=== PATIENT | male | born 1940 | race Two or more races ===

== ENCOUNTER 2018-12-12 16:15 | Inpatient (IN) | payer MEDICARE, MEDICAID ==
[~2018-12-12] VITALS: Ht 170.2 cm; Wt 72.6 kg
[2018-12-12 16:15] VITALS: BP 120/63
--- NOTE | 2018-12-12 16:15 | NUR ---
ED Nurse Note: PT BROUGHT IN TO ER TODAY BY AMBULANCE FROM [facility]. PER EMS, PT SENT DUE TO WORSENING VERBAL OUTBURSTS AND AGITATION X 2 DAYS. ON ASSESSMENT, PT IS EXTREMELY PLEASANT, CALM AND COOPERATIVE TO CARE. PER EMS, PT IS AOX1 WHICH IS BASELINE. PT IS AOX1 - ORIENTED TO SELF BUT NOT TO TIME, PLACE, OR SITUATION. HOWEVER, PT DOES ANSWER QUESTIONS APPROPRIATELY. PT PRESENTS WITH RIGHT ARM CONTRACTURES AND MILD CONTRACTURES TO BILATERAL LOWER EXTREMITIES. SKIN INTACT.
--- NOTE | 2018-12-12 16:35 | NUR ---
ED Nurse Note: XRAY AT BEDSIDE
--- NOTE | 2018-12-12 16:55 | Diagnostic Imaging Report ---
Indication: Chest pain Technique: One view of the chest Comparison: none Findings: The heart is enlarged. Patient's chin obscures the upper mediastinum. Scarring or atelectasis is seen in the left midlung. Impression: Cardiomegaly Left midlung scarring or atelectasis
--- NOTE | 2018-12-12 16:58 | Emergency Room Report ---
History of Present Illness General Chief Complaint: Behavioral Complaint Source: Patient, Medical Record Present Illness HPI Patient presents from nursing facility There was reports of the patient was acting more confused than usual Also acting more aggressively Here the patient denies any headache denies any chest pain denies any abdominal pain Upon arrival to the room he asked me where it was from Denies any other back pain Allergies: Coded Allergies: No Known Allergies (Unverified , 12/12/18) Patient History Past Medical History: see triage record Pertinent Family History: none Reviewed Nursing Documentation: PMH: Agreed; PSxH: Agreed Nursing Documentation-PMH Past Medical History: No History, Except For Hx Cardiac Problems: No - hemiparesis, hemiplegia Hx Hypertension: Yes Hx Diabetes: Yes Review of Systems All Other Systems: negative except mentioned in HPI Physical Exam Vital Signs Date Time Temp Pulse Resp B/P (MAP) Pulse Ox O2 Delivery O2 Flow Rate FiO2 12/12/18 16:10 98.4 63 16 126/69 95 Room Air Sp02 EP Interpretation: reviewed, normal General Appearance: no apparent distress Head: normocephalic, atraumatic Eyes: bilateral eye PERRL ENT: other - Poor dentition, dry mucosa Neck: supple Respiratory: lungs clear, no retraction, no accessory muscle use Cardiovascular #1: regular rate, rhythm, no edema Gastrointestinal: non tender, soft Musculoskeletal: other - Patient is chronically debilitated right foot is bent inward left hip is flexed at the knee Neurologic: alert, responsive - Just mild confusion not Psychiatric: mood/affect normal Skin: no rash Lymphatic: no adenopathy Medical Decision Making Diagnostic Impression: Primary Impression: Encephalopathy Additional Impression: Dehydration ER Course Patient is a fairly complex patient with multiple differential to consideration including but not limited to cardiac cardiopulmonary and vascular emergencies Neurological pathology including neurosurgical, infectious pathology also entertained Patient provided with further IV hydration USP reports that the patient is confused and it is difficult for them to care for the patient I spoke to the patient's primary physician who will admit for further inpatient care Labs Test 12/12/18 17:00 12/12/18 18:23 White Blood Count 6.6 K/UL (4.8-10.8) Red Blood Count 4.93 M/UL (4.70-6.10) Hemoglobin 13.7 G/DL (14.2-18.0) Hematocrit 42.1 % (42.0-52.0) Mean Corpuscular Volume 85 FL (80-99) Mean Corpuscular Hemoglobin 27.8 PG (27.0-31.0) Mean Corpuscular Hemoglobin Concent 32.6 G/DL (32.0-36.0) Red Cell Distribution Width 14.3 % (11.6-14.8) Platelet Count 241 K/UL (150-450) Mean Platelet Volume 5.8 FL (6.5-10.1) Neutrophils (%) (Auto) 55.2 % (45.0-75.0) Lymphocytes (%) (Auto) 31.2 % (20.0-45.0) Monocytes (%) (Auto) 9.4 % (1.0-10.0) Eosinophils (%) (Auto) 2.8 % (0.0-3.0) Basophils (%) (Auto) 1.3 % (0.0-2.0) Sodium Level 138 MMOL/L (136-145) Potassium Level 4.3 MMOL/L (3.5-5.1) Chloride Level 104 MMOL/L (98-107) Carbon Dioxide Level 27 MMOL/L (21-32) Anion Gap 7 mmol/L (5-15) Blood Urea Nitrogen 14 mg/dL (7-18) Creatinine 1.0 MG/DL (0.55-1.30) Estimat Glomerular Filtration Rate mL/min (>60) Glucose Level 86 MG/DL (74-106) Lactic Acid Level 1.30 mmol/L (0.4-2.0) Calcium Level 9.0 MG/DL (8.5-10.1) Total Bilirubin 0.3 MG/DL (0.2-1.0) Aspartate Amino Transf (AST/SGOT) 17 U/L (15-37) Alanine Aminotransferase (ALT/SGPT) 12 U/L (12-78) Alkaline Phosphatase 65 U/L (46-116) Total Creatine Kinase 85 U/L (26-308) Creatine Kinase MB 1.1 NG/ML (0.0-3.6) Creatine Kinase MB Relative Index 1.2 Troponin I 0.014 ng/mL (0.000-0.056) Total Protein 7.3 G/DL (6.4-8.2) Albumin 3.1 G/DL (3.4-5.0) Globulin 4.2 g/dL Albumin/Globulin Ratio 0.7 (1.0-2.7) Urine Color Pale yellow Urine Appearance Clear Urine pH 7 (4.5-8.0) Urine Specific [place] 1.005 (1.005-1.035) Urine Protein Negative (NEGATIVE) Urine Glucose (UA) Negative (NEGATIVE) Urine Ketones Negative (NEGATIVE) Urine Blood 1+ (NEGATIVE) Urine Nitrite Negative (NEGATIVE) Urine Bilirubin Negative (NEGATIVE) Urine Urobilinogen Normal MG/DL (0.0-1.0) Urine Leukocyte Esterase Negative (NEGATIVE) Urine RBC 2-4 /HPF (0 - 0) Urine WBC 0-2 /HPF (0 - 0) Urine Squamous Epithelial Cells None /LPF (NONE/OCC) Urine Amorphous Sediment Few /LPF (NONE) Urine Bacteria Few /HPF (NONE) Rhythm Strip Diag. Results EP Interpretation: yes Rate: 80 Rhythm: NSR, no PVC's, no ectopy Chest X-Ray Diagnostic Results Chest X-Ray Diagnostic Results : Chest X-Ray Ordered: Yes # of Views/Limited/Complete: 1 View Indication: Chest Pain EP Interpretation: Yes Interpretation: no consolidation, no effusion, no pneumothorax Impression: No acute disease - Cardiomegaly Electronically Signed by: Katie Barone DO Last Vital Signs Date Time Temp Pulse Resp B/P (MAP) Pulse Ox O2 Delivery O2 Flow Rate FiO2 12/12/18 16:10 98.4 63 16 126/69 95 Room Air Status: improved Disposition: ADMITTED INPATIENT Condition: Serious Katie Barone DO Dec 12, 2018 16:58
[2018-12-12 17:33] LABS: BASOPHILS % (AUTO) 1.3 % (0.0-2.0); EOSINOPHILS % (AUTO) 2.8 % (0.0-3.0); HEMATOCRIT 42.1 % (42.0-52.0); HEMOGLOBIN 13.7 G/DL (14.2-18.0); LYMPHOCYTES % (AUTO) 31.2 % (20.0-45.0); MEAN CORPUSCULAR VOLUME 85 FL (80-99); MONOCYTES % (AUTO) 9.4 % (1.0-10.0); NEUTROPHILS % (AUTO) 55.2 % (45.0-75.0); PLATELET COUNT 241 K/UL (150-450); RED BLOOD COUNT 4.93 M/UL (4.70-6.10); RED CELL DISTRIBUTION WIDTH 14.3 % (11.6-14.8); WHITE BLOOD COUNT 6.6 K/UL (4.8-10.8)
[2018-12-12 17:42] LABS: ANION GAP 7 mmol/L (5-15); BLOOD UREA NITROGEN 14 mg/dL (7-18); CARBON DIOXIDE 27 MMOL/L (21-32); CHLORIDE 104 MMOL/L (98-107); POTASSIUM 4.3 MMOL/L (3.5-5.1); SODIUM 138 MMOL/L (136-145)
[2018-12-12 18:04] LABS: ALANINE AMINOTRANSFERASE 12 U/L (12-78); ALBUMIN 3.1 G/DL (3.4-5.0); ALBUMIN/GLOBULIN RATIO 0.7 (1.0-2.7); ALKALINE PHOSPHATASE 65 U/L (46-116); ASPARTATE AMINO TRANSFERASE 17 U/L (15-37); BILIRUBIN,TOTAL 0.3 MG/DL (0.2-1.0); CKMB 1.1 NG/ML (0.0-3.6); CREATINE KINASE 85 U/L (26-308)
[2018-12-12 18:15] VITALS: BP 125/60
[2018-12-12 18:40] LABS: APPEARANCE,URINE CLEAR; BILIRUBIN, URINE NEGATIVE (NEGATIVE); COLOR,URINE PALE YELLOW; GLUCOSE, URINE (UA) NEGATIVE (NEGATIVE); KETONES,URINE NEGATIVE (NEGATIVE); LEUKOCYTE ESTERASE ,URINE NEGATIVE (NEGATIVE); NITRITE,URINE NEGATIVE (NEGATIVE); PH,URINE 7 (4.5-8.0); PROTEIN,URINE NEGATIVE (NEGATIVE); UROBILINOGEN,URINE NORMAL MG/DL (0.0-1.0)
--- NOTE | 2018-12-12 19:10 | NUR ---
ED Nurse Note: Recieved pt on santos, no complaint at the moment. pt is not aggresive. pt is hooked on monitor with vs. will continue to monitor.
--- NOTE | 2018-12-12 19:13 | NUR ---
ED Nurse Note: REPORT GIVEN TO ESTUARDO PAUL.
[2018-12-12 20:33] VITALS: BP 99/75
[2018-12-12 21:48] VITALS: BP 126/79
--- NOTE | 2018-12-12 22:15 | NUR ---
NURSE NOTES: Received report from ER nurse Diamond, reported pt is nonverbal and oriented to his name only, contracted Left arm and bilateral lower extremities, from [facility], Diamond did part of Med Recon
[2018-12-12] MEDS ORDERED: LISINOPRIL5 MG ORAL (22:24)
[2018-12-12] MEDS ORDERED: DOCUSATE SODIU100 MG ORAL (22:24)
[2018-12-12] MEDS ORDERED: ZOCOR10 MG ORAL (22:24)
[2018-12-12] MEDS ORDERED: DEPAKOTE250 MG PO (22:24)
[2018-12-12] MEDS ORDERED: ELIQUIS2.5 MG PO (22:24)
[2018-12-12] MEDS ORDERED: ACETAMINOPHEN325 M1 ORAL (22:24)
[2018-12-12] MEDS ORDERED: CARDURA1 MG ORAL (22:24)
--- NOTE | 2018-12-12 22:25 | NUR ---
ED Nurse Note: pt is admitted to the hospital. report given to gm sutton. pt tranfered to 421-2 with all belongings and on a stable vs.
--- NOTE | 2018-12-12 22:45 | NUR ---
NURSE NOTES: Pt arrived, greeted pt, he was very talkative, able to tell me his name, his birthdate and that he was in [place]. Left upper extremity is contracted and he says he doesn't want to move it, he was able to move both lower extremities. Called Dr. Ward and received orders and put them in the system. Bed in lowest position, call light within reach. Will continue to monitor pt. Addendum: 12/12/18 at 2348 by JESSI HUFFMAN RN NURSE NOTES: Vital signs 135/74, 58HR, 96%RA, 97.8T
[2018-12-12] MEDS ORDERED: ARTIFICIAL TEAR15 ML BOTH EYES (23:14)
[2018-12-12] MEDS ORDERED: VITAMIN B-12500 MCG ORAL (23:14)
[2018-12-12] MEDS ORDERED: VITAMIN D400 INTLU ORAL (23:14)
[2018-12-12] MEDS ORDERED: MULTIVITAMINS1 EAC2 ORAL (23:14)
[2018-12-13] VITALS: BP 118/72
--- NOTE | 2018-12-13 03:17 | NUR ---
NURSE NOTES: Per [facility] paperwork, pt received Flu shot 07/21/2018
[2018-12-13 04:00] VITALS: BP 141/75
--- NOTE | 2018-12-13 07:18 | NUR ---
HAND-OFF: Report given to TRAI Tierney.
[2018-12-13 08:00] VITALS: BP 128/73
--- NOTE | 2018-12-13 08:30 | NUR ---
NURSE NOTES: received patient A/A/Ox1, respond to tactile stimuli, nonverbal. 1:1 feeder. No acute resp distress noted. No c/o pain/discomfort. keep bed in lowest position. siderails are up x3. call light is within reach. IV access patent and intact. will cont to monitor.
[2018-12-13 08:34] LABS: BASOPHILS % (AUTO) 1.1 % (0.0-2.0); EOSINOPHILS % (AUTO) 2.4 % (0.0-3.0); HEMOGLOBIN 14.3 G/DL (14.2-18.0); LYMPHOCYTES % (AUTO) 32.4 % (20.0-45.0); MEAN CORPUSCULAR VOLUME 84 FL (80-99); MONOCYTES % (AUTO) 8.3 % (1.0-10.0); NEUTROPHILS % (AUTO) 55.8 % (45.0-75.0); PLATELET COUNT 241 K/UL (150-450); RED BLOOD COUNT 5.13 M/UL (4.70-6.10); RED CELL DISTRIBUTION WIDTH 13.9 % (11.6-14.8); WHITE BLOOD COUNT 5.6 K/UL (4.8-10.8)
--- NOTE | 2018-12-13 08:43 | Consultation ---
History of Present Illness General Chief Complaint: Behavioral Complaint Present Illness HPI 78-year-old male with history of psychosis and CVA with hemiplegia, who was brought in from assisted for complaint of aggressive behavior and confusion. the pt has memory impairment and is not able to follow the command. the pt is agitated the pt unable to follow command. the pt is disoriented. Allergies: Coded Allergies: No Known Allergies (Unverified , 12/12/18) Medication History Scheduled Apixaban (Eliquis), 2.5 MG PO TWICE A DAY, (Reported) Cyanocobalamin (Vitamin B-12)* (Vitamin B-12*), 500 MCG ORAL DAILY, (Reported) Dextran 70/Hypromellose (Artificial Tears Eye Drops*), 1 DROP BOTH EYES TWICE A DAY, (Reported) Divalproex Sodium* (Depakote*), 125 MG PO BEDTIME, (Reported) Docusate Sodium* (Docusate Sodium*), 100 MG ORAL DAILY, (Reported) Doxazosin Mesylate* (Cardura*), 2 MG ORAL BEDTIME, (Reported) Lisinopril (Lisinopril*), 5 MG ORAL DAILY, (Reported) Multivitamins* (Multivitamins*), 1 TAB ORAL DAILY, (Reported) Simvastatin (Zocor), 10 MG ORAL BEDTIME, (Reported) Vitamin D (Vitamin D3), 1,000 UNITS ORAL THREE TIMES A DAY, (Reported) Scheduled PRN Acetaminophen* (Acetaminophen 325MG Tablet*), 325 MG ORAL Q4H PRN for Mild Pain/ Temp > 100.5, (Reported) Lorazepam* (Ativan*), 2 MG ORAL Q6H PRN Patient History Limited by: medical condition History Provided By: Medical Record, PMD Healthcare decision maker Resuscitation status Full Code Advanced Directive on File Past Medical/Surgical History Past Medical/Surgical History: (1) Behavioral change (2) Dehydration (3) Encephalopathy Review of Systems Psychiatric: Reports: prior hx, anxiety, emotional problems, hallucinations Physical Exam General Appearance: WD/WN, alert, confused, severe distress, agitated Neurologic: depressed affect Last 24 Hour Vital Signs Date Time Temp Pulse Resp B/P (MAP) Pulse Ox O2 Delivery O2 Flow Rate FiO2 12/13/18 04:00 98.3 69 17 141/75 (97) 95 69 12/13/18 00:00 98.9 58 17 118/72 (87) 93 58 12/12/18 23:51 Room Air 12/12/18 22:25 97.8 72 17 114/65 93 Room Air 72 12/12/18 21:48 61 20 126/79 97 Room Air 61 12/12/18 20:33 63 20 99/75 95 Room Air 12/12/18 18:15 98.6 68 18 125/60 100 Room Air 12/12/18 16:15 98.6 60 20 120/63 100 Room Air 12/12/18 16:15 60 20 Room Air 12/12/18 16:10 98.4 63 16 126/69 95 Room Air Intake and Output 12/12/18 12/13/18 18:59 06:59 Intake Total 1000 ml 120 ml Balance 1000 ml 120 ml Intake Oral 120 ml IV Total 1000 ml # Voids 1 2 # Bowel Movements 2 Laboratory Tests Test 12/12/18 17:00 12/12/18 18:23 12/13/18 07:55 White Blood Count 6.6 K/UL (4.8-10.8) 5.6 K/UL (4.8-10.8) Red Blood Count 4.93 M/UL (4.70-6.10) 5.13 M/UL (4.70-6.10) Hemoglobin 13.7 G/DL (14.2-18.0) L 14.3 G/DL (14.2-18.0) Hematocrit 42.1 % (42.0-52.0) 43.0 % (42.0-52.0) Mean Corpuscular Volume 85 FL (80-99) 84 FL (80-99) Mean Corpuscular Hemoglobin 27.8 PG (27.0-31.0) 27.9 PG (27.0-31.0) Mean Corpuscular Hemoglobin Concent 32.6 G/DL (32.0-36.0) 33.2 G/DL (32.0-36.0) Red Cell Distribution Width 14.3 % (11.6-14.8) 13.9 % (11.6-14.8) Platelet Count 241 K/UL (150-450) 241 K/UL (150-450) Mean Platelet Volume 5.8 FL (6.5-10.1) L 6.4 FL (6.5-10.1) L Neutrophils (%) (Auto) 55.2 % (45.0-75.0) 55.8 % (45.0-75.0) Lymphocytes (%) (Auto) 31.2 % (20.0-45.0) 32.4 % (20.0-45.0) Monocytes (%) (Auto) 9.4 % (1.0-10.0) 8.3 % (1.0-10.0) Eosinophils (%) (Auto) 2.8 % (0.0-3.0) 2.4 % (0.0-3.0) Basophils (%) (Auto) 1.3 % (0.0-2.0) 1.1 % (0.0-2.0) Sodium Level 138 MMOL/L (136-145) Pending Potassium Level 4.3 MMOL/L (3.5-5.1) Pending Chloride Level 104 MMOL/L (98-107) Pending Carbon Dioxide Level 27 MMOL/L (21-32) Pending Anion Gap 7 mmol/L (5-15) Blood Urea Nitrogen 14 mg/dL (7-18) Pending Creatinine 1.0 MG/DL (0.55-1.30) Pending Estimat Glomerular Filtration Rate mL/min (>60) Pending Glucose Level 86 MG/DL (74-106) Pending Lactic Acid Level 1.30 mmol/L (0.4-2.0) Calcium Level 9.0 MG/DL (8.5-10.1) Pending Total Bilirubin 0.3 MG/DL (0.2-1.0) Aspartate Amino Transf (AST/SGOT) 17 U/L (15-37) Alanine Aminotransferase (ALT/SGPT) 12 U/L (12-78) Alkaline Phosphatase 65 U/L (46-116) Total Creatine Kinase 85 U/L (26-308) Creatine Kinase MB 1.1 NG/ML (0.0-3.6) Creatine Kinase MB Relative Index 1.2 Troponin I 0.014 ng/mL (0.000-0.056) Total Protein 7.3 G/DL (6.4-8.2) Albumin 3.1 G/DL (3.4-5.0) L Globulin 4.2 g/dL Albumin/Globulin Ratio 0.7 (1.0-2.7) L Urine Color Pale yellow Urine Appearance Clear Urine pH 7 (4.5-8.0) Urine Specific [place] 1.005 (1.005-1.035) Urine Protein Negative (NEGATIVE) Urine Glucose (UA) Negative (NEGATIVE) Urine Ketones Negative (NEGATIVE) Urine Blood 1+ (NEGATIVE) H Urine Nitrite Negative (NEGATIVE) Urine Bilirubin Negative (NEGATIVE) Urine Urobilinogen Normal MG/DL (0.0-1.0) Urine Leukocyte Esterase Negative (NEGATIVE) Urine RBC 2-4 /HPF (0 - 0) H Urine WBC 0-2 /HPF (0 - 0) Urine Squamous Epithelial Cells None /LPF (NONE/OCC) Urine Amorphous Sediment Few /LPF (NONE) H Urine Bacteria Few /HPF (NONE) Height (Feet): 5 Height (Inches): 7.00 Weight (Pounds): 160 Medications Current Medications Medications (Trade) Dose Ordered Sig/Heber Route PRN Reason Start Time Stop Time Status Last Admin Dose Admin Acetaminophen (Tylenol) 325 mg Q4H PRN ORAL Mild Pain/Temp > 100.5 12/12/18 23:30 01/11/19 23:29 Apixaban (Eliquis) 2.5 mg TWICE A DAY ORAL 12/13/18 09:00 01/12/19 08:59 Artificial Tears (Akwa-Tears) 1 drop TWICE A DAY BOTH EYES 12/13/18 09:00 01/12/19 08:59 Cyanocobalamin (Vitamin B-12) 500 mcg DAILY ORAL 12/13/18 09:00 01/12/19 08:59 Divalproex Sodium (Depakote Sprinkles) 125 mg BEDTIME ORAL 12/13/18 21:00 01/12/19 20:59 Docusate Sodium (Colace) 100 mg DAILY ORAL 12/13/18 09:00 01/12/19 08:59 Doxazosin Mesylate (Cardura) 2 mg BEDTIME ORAL 12/13/18 21:00 01/12/19 20:59 Lisinopril (Zestril) 5 mg DAILY ORAL 12/13/18 09:00 01/12/19 08:59 Multivitamins (Multivitamins) 1 tab DAILY ORAL 12/13/18 09:00 01/12/19 08:59 Vitamin D (Vitamin D) 1,000 intlu THREE TIMES A DAY ORAL 12/13/18 09:00 01/12/19 08:59 Assessment/Plan Problem List: (1) Acute metabolic encephalopathy ICD Codes: G93.41 - Metabolic encephalopathy SNOMED: [id number], [id number] Assessment/Plan lexapro 10mg po qam depakote ativan the pt lacks capacity to make decisions. Pavel Elder MD Dec 13, 2018 08:43
[2018-12-13] MEDS: Eliquis 2.5mg tablet ORAL SCH ×2 (08:50→17:18)
[2018-12-13] MEDS: Artificial Tears 1.4% Op Soln BOTH EYES SCH ×2 (08:50→17:19)
[2018-12-13] MEDS: Docusate 100mg cap ORAL SCH (08:50)
[2018-12-13] MEDS: Vitamin B-12 500mcg tab ORAL SCH (08:51)
[2018-12-13] MEDS: Vitamin D 1000 IU Tab ORAL SCH ×3 (08:51→17:19)
[2018-12-13] MEDS: Lisinopril 2.5mg tab ORAL SCH (08:51)
[2018-12-13 09:19] LABS: ANION GAP 7 mmol/L (5-15); BLOOD UREA NITROGEN 10 mg/dL (7-18); CALCIUM 8.9 MG/DL (8.5-10.1); CARBON DIOXIDE 25 MMOL/L (21-32); CHLORIDE 107 MMOL/L (98-107); CREATININE 0.7 MG/DL (0.55-1.30); POTASSIUM 4.1 MMOL/L (3.5-5.1); SODIUM 139 MMOL/L (136-145)
[2018-12-13 12:00] VITALS: BP 105/80
[2018-12-13 16:19] VITALS: BP 120/55
--- NOTE | 2018-12-13 16:57 | General Progress Note ---
Assessment/Plan Status: stable Assessment/Plan 1. bipolar disorder - will have Psych see the patient. 2. HTN - cont home meds and monitor BP and adjust meds as needed. 3. 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 4. constipation - cont colace 100 mg one po daily. Subjective Date patient seen: Dec 13, 2018 Time patient seen: 08:00 Constitutional: Reports: weakness HEENT: Reports: no symptoms Cardiovascular: Reports: no symptoms Respiratory: Reports: no symptoms Gastrointestinal/Abdominal: Reports: no symptoms Genitourinary: Reports: no symptoms Neurologic/Psychiatric: Reports: no symptoms Endocrine: Reports: no symptoms Hematologic/Lymphatic: Reports: no symptoms Allergies: Coded Allergies: No Known Allergies (Unverified , 12/12/18) Subjective This morning patient was seen by Psych. No sob or chest pain. no fever or chills. No Nausea or Vomiting. Objective Last 24 Hour Vital Signs Date Time Temp Pulse Resp B/P (MAP) Pulse Ox O2 Delivery O2 Flow Rate FiO2 12/13/18 16:19 98.5 64 18 120/55 (76) 94 64 12/13/18 12:00 98.6 61 15 105/80 (88) 95 61 12/13/18 09:00 Room Air 12/13/18 08:51 112/64 12/13/18 08:00 97.0 59 18 128/73 (91) 97 59 12/13/18 04:00 98.3 69 17 141/75 (97) 95 69 12/13/18 00:00 98.9 58 17 118/72 (87) 93 58 12/12/18 23:51 Room Air 12/12/18 22:25 97.8 72 17 114/65 93 Room Air 72 12/12/18 21:48 61 20 126/79 97 Room Air 61 12/12/18 20:33 63 20 99/75 95 Room Air 12/12/18 18:15 98.6 68 18 125/60 100 Room Air Intake and Output 12/12/18 12/13/18 19:00 07:00 Intake Total 1000 ml 120 ml Balance 1000 ml 120 ml Intake Oral 120 ml IV Total 1000 ml # Voids 1 2 # Bowel Movements 2 Laboratory Tests 12/12/18 17:00: White Blood Count 6.6, Red Blood Count 4.93, Hemoglobin 13.7L, Hematocrit 42.1, Mean Corpuscular Volume 85, Mean Corpuscular Hemoglobin 27.8, Mean Corpuscular Hemoglobin Concent 32.6, Red Cell Distribution Width 14.3, Platelet Count 241, Mean Platelet Volume 5.8L, Neutrophils (%) (Auto) 55.2, Lymphocytes (%) (Auto) 31.2, Monocytes (%) (Auto) 9.4, Eosinophils (%) (Auto) 2.8, Basophils (%) (Auto ) 1.3, Sodium Level 138, Potassium Level 4.3, Chloride Level 104, Carbon Dioxide Level 27, Anion Gap 7, Blood Urea Nitrogen 14, Creatinine 1.0, Estimat Glomerular Filtration Rate , Glucose Level 86, Lactic Acid Level 1.30, Calcium Level 9.0, Total Bilirubin 0.3, Aspartate Amino Transf (AST/SGOT) 17, Alanine Aminotransferase (ALT/SGPT) 12, Alkaline Phosphatase 65, Total Creatine Kinase 85, Creatine Kinase MB 1.1, Creatine Kinase MB Relative Index 1.2, Troponin I 0.014, Total Protein 7.3, Albumin 3.1L, Globulin 4.2, Albumin/Globulin Ratio 0.7L 12/12/18 18:23: Urine Color Pale yellow, Urine Appearance Clear, Urine pH 7, Urine Specific [place] 1.005, Urine Protein Negative, Urine Glucose (UA) Negative, Urine Ketones Negative, Urine Blood 1+H, Urine Nitrite Negative, Urine Bilirubin Negative, Urine Urobilinogen Normal, Urine Leukocyte Esterase Negative, Urine RBC 2-4H, Urine WBC 0-2, Urine Squamous Epithelial Cells None, Urine Amorphous Sediment FewH, Urine Bacteria Few 12/13/18 07:55: White Blood Count 5.6, Red Blood Count 5.13, Hemoglobin 14.3, Hematocrit 43.0, Mean Corpuscular Volume 84, Mean Corpuscular Hemoglobin 27.9, Mean Corpuscular Hemoglobin Concent 33.2, Red Cell Distribution Width 13.9, Platelet Count 241, Mean Platelet Volume 6.4L, Neutrophils (%) (Auto) 55.8, Lymphocytes (%) (Auto) 32.4, Monocytes (%) (Auto) 8.3, Eosinophils (%) (Auto) 2.4, Basophils (%) (Auto ) 1.1, Sodium Level 139, Potassium Level 4.1, Chloride Level 107, Carbon Dioxide Level 25, Anion Gap 7, Blood Urea Nitrogen 10, Creatinine 0.7, Estimat Glomerular Filtration Rate , Glucose Level 76, Calcium Level 8.9 Height (Feet): 5 Height (Inches): 7.00 Weight (Pounds): 160 General Appearance: alert EENT: normal ENT inspection Neck: non-tender, normal alignment, supple Cardiovascular: normal rate, regular rhythm, no gallop/murmur Respiratory/Chest: lungs clear, normal breath sounds, no respiratory distress Abdomen: normal bowel sounds, non tender, soft Extremities: normal range of motion, non-tender Edema: no edema noted Arm (L), no edema noted Arm (R), no edema noted Leg (L), no edema noted Leg (R), no edema noted Pedal (L), no edema noted Pedal (R), no edema noted Generalized Neurologic: no motor/sensory deficits, alert, responsive Skin: warm/dry Lymphatic: normal anterior cervical (L), normal anterior cervical (R), normal posterior cervical (L), normal posterior cervical (R), normal submandibular (L) , normal submandibular (R), normal supraclavicular (L), normal supraclavicular ( R), normal axillary (L), normal axillary (R), normal inguinal (L), normal inguinal (R), normal other Mitesh Ward MD Dec 13, 2018 16:57
--- NOTE | 2018-12-13 19:15 | NUR ---
HAND-OFF: Report given to Romy.
--- NOTE | 2018-12-13 19:39 | NUR ---
NURSE NOTES: Pt received awake, alert but not speaking because he was holding fluid in his mouth. Informed both charge nurses. I asked him to spit it out and he did. Bed in lowest position, call light within reach, condom catheter in place. will continue to monitor
[2018-12-13 20:00] VITALS: BP 121/69
[2018-12-13] MEDS ORDERED: LORazepam 1mg tab ORAL PRN (20:15)
[2018-12-13] MEDS ORDERED: Depakote 125mg Sprinkles ORAL SCH (21:00)
[2018-12-13] MEDS: Doxazosin 1mg Tab ORAL SCH (21:09)
[2018-12-13] MEDS: Depakote 125mg Sprinkles ORAL SCH (21:10)
[2018-12-14] VITALS: BP 129/66
--- NOTE | 2018-12-14 01:00 | History and Physical Report ---
DATE OF ADMISSION: 12/12/2018 CHIEF COMPLAINT: Aggressive behavior and slight confusion at senior living. HISTORY OF PRESENT ILLNESS: This is an 78-year-old male with history of CVA with hemiplegia, who was brought in from senior living for complaint of aggressive behavior and confusion according to the nursing staff at the senior living. The patient also has a history of hypertension and constipation. The patient denies any shortness of breath or chest pain. No abdominal pain, nausea, or vomiting. PAST MEDICAL HISTORY: Include history of hypertension, constipation, and CVA with hemiplegia. ALLERGIES: No known drug allergy. SOCIAL HISTORY: The patient lives in a long-term senior living. No history of smoking or alcohol abuse. REVIEW OF SYSTEMS: Negative except for history of present illness. PHYSICAL EXAMINATION: VITAL SIGNS: Temperature 98.4, pulse 63, respirations 16, blood pressure 162/69, and pulse oximetry 95% on room air. GENERAL: Alert, in no apparent distress, responds to commands. HEENT: Normocephalic, normochromic. Extraocular muscles intact. Throat is clear. NECK: Supple. No lymphadenopathy. LUNGS: Clear to auscultation bilaterally. No retraction and no accessory muscle use. CARDIOVASCULAR: Regular rate and rhythm. No murmur. No gallop. Normal S1, S2. GASTROINTESTINAL: Soft, nontender, and nondistended. Positive bowel sounds. EXTREMITIES: No edema, cyanosis, or clubbing. BACK: No CVA tenderness. SKIN: No rash. LABORATORY AND DIAGNOSTIC DATA: Include WBC 6.6, hemoglobin 13.7, hematocrit 42.1, platelet count 241, neutrophils 55, lymphocytes 31, monos 9, eosinophils 2.8, and basophils 1.3. Sodium 138, potassium 4.3, chloride 104, carbon dioxide 27, BUN 14, creatinine 1, glucose 86, calcium 9. AST 17, ALT 12, alkaline phosphatase 65. Albumin 3.1. Troponin is 0.014. Lactic acid is 1.3. UA showed +1 blood, 2 to 4 rbcs, and few amorphous sediment and few bacteria, and wbc 0 to 2. Chest x-ray showed cardiomegaly and left midlung scarring versus atelectasis. IMPRESSION: 1. Bipolar disorder and we will have Psychiatry to see the patient as inpatient. 2. Hypertension. We will continue home medication and adjust blood pressure medication accordingly. 3. CVA with hemiplegia. The patient is currently on anticoagulation with Eliquis 2.5 twice a day and will be continued. 4. Constipation. We will have the patient on Colace 100 daily. The patient will be admitted for a minimum of two-night stay for adjustment of medication for bipolar disorder and aggression. Late entry, time of dictation does not correspond to the time patient was seen. Mitesh Ward M.D. DR: ORN JOB#: [id number] CC: ROSY
[2018-12-14 04:00] VITALS: BP 129/77
--- NOTE | 2018-12-14 06:47 | NUR ---
NURSE NOTES: Micro (Roger) called stating blood culture came back gram positive cocci in clusters.
--- NOTE | 2018-12-14 07:24 | NUR ---
HAND-OFF: Report given to ESTUARDO Gunn. Endorsed about pt blood culture gram positive cocci in clusters, patient not swallowing thickened water at times.
--- NOTE | 2018-12-14 07:36 | NUR ---
NURSE NOTES: pt in bed with no sob nor in any form of distress noted. IV intact and patent. no behavior issue noted. bed in lowest position. call light within reach at all time. will continue to monitor
[2018-12-14 08:00] VITALS: BP 95/60
[2018-12-14] MEDS: Vitamin B-12 500mcg tab ORAL SCH (08:30)
[2018-12-14] MEDS: Eliquis 2.5mg tablet ORAL SCH ×2 (08:30→17:41)
[2018-12-14] MEDS: Vitamin D 1000 IU Tab ORAL SCH ×3 (08:30→17:41)
[2018-12-14] MEDS: Artificial Tears 1.4% Op Soln BOTH EYES SCH ×2 (08:31→17:41)
[2018-12-14] MEDS: Lisinopril 2.5mg tab ORAL SCH (08:31)
[2018-12-14] MEDS: Docusate 100mg cap ORAL SCH (08:31)
[2018-12-14 12:00] VITALS: BP 124/65
[2018-12-14 16:00] VITALS: BP 120/68
--- NOTE | 2018-12-14 19:10 | NUR ---
HAND-OFF: Report given to ESTUARDO Stanton.
[2018-12-14 20:00] VITALS: BP 135/79
--- NOTE | 2018-12-14 20:45 | NUR ---
NURSE NOTES: Pt received awake lying in bed, at lowest position, no signs of pain or distress at the moment, will continue to monitor.
[2018-12-14] MEDS: Depakote 125mg Sprinkles ORAL SCH (21:44)
[2018-12-14] MEDS: Doxazosin 1mg Tab ORAL SCH (21:44)
--- NOTE | 2018-12-14 23:30 | General Progress Note ---
Assessment/Plan Status: stable Assessment/Plan 1. bipolar disorder - cont depakote. D/c planning tomorrow back to [facility]. 2. questionable sepsis - blood culture positive x one set with Gram Positive cocci in cluster most likely contamination. 3. HTN - controlled. cont same meds. 4. 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 5. constipation - cont colace 100 mg one po daily. Subjective Date patient seen: Dec 14, 2018 Time patient seen: 10:00 Constitutional: Reports: weakness HEENT: Reports: no symptoms Cardiovascular: Reports: no symptoms Respiratory: Reports: no symptoms Gastrointestinal/Abdominal: Reports: no symptoms Genitourinary: Reports: no symptoms Neurologic/Psychiatric: Reports: no symptoms Endocrine: Reports: no symptoms Hematologic/Lymphatic: Reports: no symptoms Allergies: Coded Allergies: No Known Allergies (Unverified , 12/12/18) Subjective Patient awake and afebrile. No sob or chest pain. no fever or chills. No Nausea or Vomiting. one set of blood culture showed gram Positive cocci in cluster. Objective Last 24 Hour Vital Signs Date Time Temp Pulse Resp B/P (MAP) Pulse Ox O2 Delivery O2 Flow Rate FiO2 12/14/18 16:00 97.1 68 18 120/68 (85) 96 67 12/14/18 12:00 97.5 67 18 124/65 (84) 95 67 12/14/18 09:00 Room Air 12/14/18 08:31 95/60 12/14/18 08:00 97.0 71 18 95/60 (72) 94 71 12/14/18 04:00 98.0 79 18 129/77 (94) 94 79 12/14/18 00:00 98.1 71 17 129/66 (87) 94 71 Intake and Output 12/13/18 12/14/18 19:00 07:00 Intake Total 660 ml 120 ml Balance 660 ml 120 ml Intake Oral 660 ml 120 ml # Voids 7 2 # Bowel Movements 2 Height (Feet): 5 Height (Inches): 7.00 Weight (Pounds): 160 General Appearance: no apparent distress, alert Neck: non-tender, normal alignment, supple Cardiovascular: normal peripheral pulses, normal rate, regular rhythm Respiratory/Chest: chest wall non-tender, lungs clear, normal breath sounds Abdomen: normal bowel sounds, non tender, soft Extremities: normal range of motion, non-tender Edema: no edema noted Arm (L), no edema noted Arm (R), no edema noted Leg (L), no edema noted Leg (R), no edema noted Pedal (L), no edema noted Pedal (R), no edema noted Generalized Neurologic: alert, responsive Skin: warm/dry Lymphatic: normal anterior cervical (L), normal anterior cervical (R), normal posterior cervical (L), normal posterior cervical (R), normal submandibular (L) , normal submandibular (R), normal supraclavicular (L), normal supraclavicular ( R), normal axillary (L), normal axillary (R), normal inguinal (L), normal inguinal (R), normal other Mitesh Ward MD Dec 14, 2018 23:30
[2018-12-15] VITALS: BP 127/75
[2018-12-15 04:00] VITALS: BP 138/71
--- NOTE | 2018-12-15 07:08 | NUR ---
HAND-OFF: Report given to ESTUARDO Roman.
[2018-12-15 07:14] LABS: BASOPHILS % (AUTO) 0.9 % (0.0-2.0); EOSINOPHILS % (AUTO) 1.8 % (0.0-3.0); HEMOGLOBIN 13.4 G/DL (14.2-18.0); LYMPHOCYTES % (AUTO) 24.4 % (20.0-45.0); MEAN CORPUSCULAR VOLUME 84 FL (80-99); PLATELET COUNT 222 K/UL (150-450); RED BLOOD COUNT 4.76 M/UL (4.70-6.10); WHITE BLOOD COUNT 7.2 K/UL (4.8-10.8)
[2018-12-15 07:21] LABS: ANION GAP 10 mmol/L (5-15); BLOOD UREA NITROGEN 11 mg/dL (7-18); CALCIUM 8.7 MG/DL (8.5-10.1); CARBON DIOXIDE 25 MMOL/L (21-32); CHLORIDE 104 MMOL/L (98-107); CREATININE 0.9 MG/DL (0.55-1.30); POTASSIUM 3.9 MMOL/L (3.5-5.1); SODIUM 139 MMOL/L (136-145)
--- NOTE | 2018-12-15 07:30 | NUR ---
NURSE NOTES: pt in bed with no sob nor in any form of distress noted. Breathing regular and unlabored. denies any pain at this time. call light within reach at all time. will continue to monitor
[2018-12-15 08:00] VITALS: BP 115/66
[2018-12-15] MEDS: Vitamin D 1000 IU Tab ORAL SCH ×2 (08:32→12:27)
[2018-12-15] MEDS: Lisinopril 2.5mg tab ORAL SCH (08:32)
[2018-12-15] MEDS: Docusate 100mg cap ORAL SCH (08:33)
[2018-12-15] MEDS: Vitamin B-12 500mcg tab ORAL SCH (08:33)
[2018-12-15] MEDS: Artificial Tears 1.4% Op Soln BOTH EYES SCH (08:33)
[2018-12-15] MEDS: Eliquis 2.5mg tablet ORAL SCH (08:33)
[2018-12-15] MEDS ORDERED: ATIVAN1 MG ORAL (09:09)
--- NOTE | 2018-12-15 09:13 | General Progress Note ---
Assessment/Plan Status: stable Assessment/Plan 1. bipolar disorder - cont depakote. [facility]. 2. questionable sepsis - Pt is stable and no sign of sepsis. blood culture positive x one set with Gram Positive cocci in cluster most likely contamination. 3. HTN - controlled. cont same meds. 4. 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 5. constipation - cont colace 100 mg one po daily. Subjective Date patient seen: Dec 15, 2018 Time patient seen: 09:00 Constitutional: Reports: weakness HEENT: Reports: no symptoms Cardiovascular: Reports: no symptoms Respiratory: Reports: no symptoms Gastrointestinal/Abdominal: Reports: no symptoms Genitourinary: Reports: no symptoms Neurologic/Psychiatric: Reports: no symptoms Endocrine: Reports: no symptoms Hematologic/Lymphatic: Reports: no symptoms Allergies: Coded Allergies: No Known Allergies (Unverified , 12/12/18) Subjective Patient awake and afebrile. No sob or chest pain. no fever or chills. No Nausea or Vomiting. Objective Last 24 Hour Vital Signs Date Time Temp Pulse Resp B/P (MAP) Pulse Ox O2 Delivery O2 Flow Rate FiO2 12/15/18 08:32 115/65 12/15/18 08:00 98.1 65 17 115/66 (82) 97 65 12/15/18 04:00 97.9 79 18 138/71 (93) 99 79 12/15/18 00:00 98.0 81 18 127/75 (92) 92 81 12/14/18 21:00 Room Air 12/14/18 20:00 97.9 85 18 135/79 (97) 93 85 12/14/18 16:00 97.1 68 18 120/68 (85) 96 67 12/14/18 12:00 97.5 67 18 124/65 (84) 95 67 Intake and Output 12/14/18 12/15/18 18:59 06:59 Intake Total 860 ml 120 ml Balance 860 ml 120 ml Intake Oral 860 ml 120 ml # Voids 8 2 # Bowel Movements 1 Laboratory Tests 12/15/18 05:45: White Blood Count 7.2, Red Blood Count 4.76, Hemoglobin 13.4L, Hematocrit 40.0L , Mean Corpuscular Volume 84, Mean Corpuscular Hemoglobin 28.2, Mean Corpuscular Hemoglobin Concent 33.7, Red Cell Distribution Width 14.0, Platelet Count 222, Mean Platelet Volume 6.3L, Neutrophils (%) (Auto) 65.0, Lymphocytes ( %) (Auto) 24.4, Monocytes (%) (Auto) 8.0, Eosinophils (%) (Auto) 1.8, Basophils (%) (Auto) 0.9, Sodium Level 139, Potassium Level 3.9, Chloride Level 104, Carbon Dioxide Level 25, Anion Gap 10, Blood Urea Nitrogen 11, Creatinine 0.9, Estimat Glomerular Filtration Rate , Glucose Level 78, Calcium Level 8.7 Height (Feet): 5 Height (Inches): 7.00 Weight (Pounds): 160 General Appearance: no apparent distress, alert EENT: normal ENT inspection, TMs normal Neck: non-tender, normal alignment, supple Cardiovascular: normal peripheral pulses, normal rate, regular rhythm Respiratory/Chest: chest wall non-tender, lungs clear, normal breath sounds Abdomen: normal bowel sounds, non tender, soft Extremities: normal range of motion, non-tender Edema: no edema noted Arm (L), no edema noted Arm (R), no edema noted Leg (L), no edema noted Leg (R), no edema noted Pedal (L), no edema noted Pedal (R), no edema noted Generalized Neurologic: alert, oriented x 3, responsive Skin: warm/dry Lymphatic: normal anterior cervical (L), normal anterior cervical (R), normal posterior cervical (L), normal posterior cervical (R), normal submandibular (L) , normal submandibular (R), normal supraclavicular (L), normal supraclavicular ( R), normal axillary (L), normal axillary (R), normal inguinal (L), normal inguinal (R), normal other Mitesh Ward MD Dec 15, 2018 09:13
[2018-12-15 12:00] VITALS: BP 124/71
[2018-12-15] MEDS ORDERED: LEXAPRO10 MG ORAL (12:08)
--- NOTE | 2018-12-15 12:08 | General Progress Note ---
Assessment/Plan Problem List: (1) Acute metabolic encephalopathy ICD Codes: G93.41 - Metabolic encephalopathy SNOMED: [id number], [id number] Status: not improved, unchanged Assessment/Plan lexapro 10mg po qam depakote ativan the pt lacks capacity to make decisions. Subjective Neurologic/Psychiatric: Reports: anxiety, depressed, emotional problems Allergies: Coded Allergies: No Known Allergies (Unverified , 12/12/18) Objective Last 24 Hour Vital Signs Date Time Temp Pulse Resp B/P (MAP) Pulse Ox O2 Delivery O2 Flow Rate FiO2 12/15/18 09:00 Room Air 12/15/18 08:32 115/65 12/15/18 08:00 98.1 65 17 115/66 (82) 97 65 12/15/18 04:00 97.9 79 18 138/71 (93) 99 79 12/15/18 00:00 98.0 81 18 127/75 (92) 92 81 12/14/18 21:00 Room Air 12/14/18 20:00 97.9 85 18 135/79 (97) 93 85 12/14/18 16:00 97.1 68 18 120/68 (85) 96 67 Intake and Output 12/14/18 12/15/18 18:59 06:59 Intake Total 860 ml 120 ml Balance 860 ml 120 ml Intake Oral 860 ml 120 ml # Voids 8 2 # Bowel Movements 1 Laboratory Tests 12/15/18 05:45: White Blood Count 7.2, Red Blood Count 4.76, Hemoglobin 13.4L, Hematocrit 40.0L , Mean Corpuscular Volume 84, Mean Corpuscular Hemoglobin 28.2, Mean Corpuscular Hemoglobin Concent 33.7, Red Cell Distribution Width 14.0, Platelet Count 222, Mean Platelet Volume 6.3L, Neutrophils (%) (Auto) 65.0, Lymphocytes ( %) (Auto) 24.4, Monocytes (%) (Auto) 8.0, Eosinophils (%) (Auto) 1.8, Basophils (%) (Auto) 0.9, Sodium Level 139, Potassium Level 3.9, Chloride Level 104, Carbon Dioxide Level 25, Anion Gap 10, Blood Urea Nitrogen 11, Creatinine 0.9, Estimat Glomerular Filtration Rate , Glucose Level 78, Calcium Level 8.7 Height (Feet): 5 Height (Inches): 7.00 Weight (Pounds): 160 General Appearance: WD/WN, alert, confused, agitated Pavel Elder MD Dec 15, 2018 12:08
--- NOTE | 2018-12-15 14:16 | NUR ---
*-* DISCHARGE PLANNING *-* PATIENT HAS BEEN REFERRED BACK TO: [facility] P:[phone] F:[phone]
--- NOTE | 2018-12-15 14:36 | NUR ---
*-* DISCHARGE PLANNED *-* PATIENT IS DISCHARGED TO: [facility]. ROOM# 121-C SKILLED T:[phone] FOR NURSE TO NURSE REPORT [facility] HAS BEEN ARRANGED FOR FINISH SAW OPERATOR AT [address] [id number]
[2018-12-15 16:00] VITALS: BP 130/76
--- NOTE | 2018-12-15 18:23 | NUR ---
NURSE NOTES: pt was removed from the system previously by accident. pt was discharged to [facility] snf picked up by ambulance @1836 with stable condition. Iv heplock removed and covered with gauze and taped. no bleeding noted. VSS. denies any pain. all discharge report given to the nurse Gricelda and verbalized understanding.
--- NOTE | 2018-12-15 23:45 | Discharge Summary ---
DATE OF ADMISSION: 12/12/2018 DATE OF DISCHARGE: 12/15/2018 HOSPITAL COURSE: This is an 78-year-old male with history of CVA with hemiplegia, who was brought in for complaint of aggressive behavior and confusion prior to admission. The patient was brought in for psych evaluation as well. He also has history of hypertension and constipation. He denied any shortness of breath or chest pain. While in the hospital, the patient was seen by psych and started on Lexapro along with Depakote 125 mg daily. He also had blood cultures showed one negative for 48 hours, but one of the cultures showed, it was positive for gram-positive cocci in cluster and staphylococcus coag-negative, but most likely was contamination because the patient did not have any signs or symptoms of sepsis. He also had a chest x-ray done while in the hospital that was negative for any acute changes. DISCHARGE DIAGNOSES: 1. Bipolar disorder. 2. Hypertension. 3. CVA with hemiplegia. 4. Constipation. DISCHARGE MEDICATIONS: Include: 1. Ativan 2 mg q.6 h. p.r.n. 2. Acetaminophen 325 mg q.4 h. p.r.n. 3. Eliquis 2.5 mg twice a day. 4. Vitamin B12 500 mcg p.o. daily. 5. Artificial Tears one drop b.i.d. 6. Depakote 125 mg p.o. nightly. 7. Colace 100 mg daily. 8. Cardura 2 mg p.o. nightly. 9. Lexapro 10 mg daily. 10. Lisinopril 5 mg p.o. daily. 11. Multivitamin one p.o. daily. 12. Zocor 10 mg p.o. nightly. 13. Vitamin D 1000 units p.o. daily. DISPOSITION: The patient will be discharged back to the [facility] and we will follow up the patient in a few days. Mitesh Ward M.D. DR: SEN JOB#: [id number] CC:
== END 2018-12-15 17:37 | DRG 885 ==
LOC: EDBD 16:15 → EMR 16:36 → EDBEDREQ 16:36 → 4E 20:16 → EDBEDREQ 20:25 → 4E 22:35
DX: F31.9 Bipolar disorder, unspecified (principal); G93.41 Metabolic encephalopathy; I69.359 Hemiplegia and hemiparesis following cerebral infarction affecting unspecified side; E86.0 Dehydration; I10 Essential (primary) hypertension; K59.00 Constipation, unspecified
CPT/HCPCS: 36415; 71045; 80048; 80053; 81003; 82550; 82553; 83605; 84484; 85025; 87040; 87081; 87181; 93005; 96360; 99285

== ENCOUNTER 2019-02-16 15:31 | Inpatient (IN) | payer MEDICARE, MEDICAID ==
[~2019-02-16] VITALS: Ht 175.3 cm; Wt 74.5 kg
[~2019-02-16 15:31] MED LIST: ACETAMINOPHEN325 M1 ORAL; ARTIFICIAL TEAR15 ML BOTH EYES; ATIVAN1 MG ORAL; CARDURA1 MG ORAL; DEPAKOTE250 MG PO; DOCUSATE SODIU100 MG ORAL; ELIQUIS2.5 MG PO; LEXAPRO10 MG ORAL; LISINOPRIL5 MG ORAL; MULTIVITAMINS1 EAC2 ORAL; VITAMIN B-12500 MCG ORAL; VITAMIN D400 INTLU ORAL; ZOCOR10 MG ORAL
[2019-02-16 15:41] VITALS: BP 113/75
--- NOTE | 2019-02-16 15:41 | NUR ---
ED Nurse Note: Pt brought in by ambulance [facility] from [facility] due to left ear discharge since this morning. Per EMS, the SNF staff denies any recent trauma or head injury. Pt is awake but unable to follow commands. Noted liquid drainage with bright red blood in left ear.
[2019-02-16] MEDS ORDERED: Albuterol ud Inhalation HHN ONE (16:15)
[2019-02-16] MEDS ORDERED: Isovue-300 100ml vial INJ PRN (16:30)
--- NOTE | 2019-02-16 16:30 | NUR ---
ED Nurse Note: Pt taken to CT via [facility]. Blood specimen and ear culture sent.
--- NOTE | 2019-02-16 16:59 | NUR ---
ED Nurse Note: RT at the bed side for breathing treatment.
--- NOTE | 2019-02-16 17:07 | Diagnostic Imaging Report ---
Indication: Left ear pain Technique: Continuous helical transaxial imaging of the maxillofacial structures obtained after intravenous contrast administration. Coronal 2-D reformats were also obtained. Study obtained in a Siemens sensation [address] Total Dose length Product (DLP): 735.[address] Dose Index Volume (CTDIvol): 28.19 mGy Comparison: None Findings: There is sclerosis and under pneumatization of the mastoid portions of both temporal bones indicative of chronic mastoiditis. In addition on the left side there is opacification of several of the mastoid air cells some of which appear to have coalesced. This is a sign of acute mastoiditis. There is soft tissue opacification of the external auditory canal extending into the middle ear canal with soft tissue thickening. This may be due to cellulitis. Correlate clinically. There is no abscess or fluid collection identified. The paranasal sinuses appear clear as visualized. TMJs are unremarkable. Orbits as visualized are unremarkable. There is generalized atrophy of the brain. IMPRESSION: Acute on chronic left mastoiditis, otitis media and suggestion of left external otitis. No abscess identified.
[2019-02-16 17:10] LABS: ANION GAP 9 mmol/L (5-15); BASOPHILS % (AUTO) 0.9 % (0.0-2.0); BLOOD UREA NITROGEN 11 mg/dL (7-18); CALCIUM 8.8 MG/DL (8.5-10.1); CARBON DIOXIDE 22 MMOL/L (21-32); CHLORIDE 104 MMOL/L (98-107); CREATININE 0.8 MG/DL (0.55-1.30); EOSINOPHILS % (AUTO) 1.1 % (0.0-3.0); HEMATOCRIT 40.3 % (42.0-52.0); HEMOGLOBIN 13.6 G/DL (14.2-18.0); LYMPHOCYTES % (AUTO) 12.8 % (20.0-45.0); MEAN CORPUSCULAR VOLUME 82 FL (80-99); MONOCYTES % (AUTO) 10.1 % (1.0-10.0); NEUTROPHILS % (AUTO) 75.1 % (45.0-75.0); PLATELET COUNT 221 K/UL (150-450); POTASSIUM 4.4 MMOL/L (3.5-5.1); RED BLOOD COUNT 4.93 M/UL (4.70-6.10); SODIUM 135 MMOL/L (136-145); WHITE BLOOD COUNT 10.6 K/UL (4.8-10.8)
[2019-02-16 17:14] LABS: ALANINE AMINOTRANSFERASE 17 U/L (12-78); ALBUMIN 2.8 G/DL (3.4-5.0); ALBUMIN/GLOBULIN RATIO 0.6 (1.0-2.7); ALKALINE PHOSPHATASE 66 U/L (46-116); ASPARTATE AMINO TRANSFERASE 21 U/L (15-37); BILIRUBIN,TOTAL 0.6 MG/DL (0.2-1.0)
[2019-02-16 17:15] LABS: INR 1.1 (0.9-1.1)
[2019-02-16] MEDS ORDERED: Vancomycin 1 GM in NS 275 ML IVPB ONE (17:15)
[2019-02-16] MEDS ORDERED: Piperacillin/Tazobactam 3.375 GM in NS 110 ML IVPB ONE (17:15)
--- NOTE | 2019-02-16 17:33 | NUR ---
ED Nurse Note: Dr Finnegan at the bed side.
[2019-02-16 17:38] VITALS: BP 122/42
--- NOTE | 2019-02-16 17:48 | General Progress Note ---
Assessment/Plan Status: stable Assessment/Plan: 1. Otitis media and Externia - Start Vanco and Zosyn IV and Cx of the pus on Lt ear. 2. Acute on chronic Mastoiditis - ENT consult with DR Gomez Elizondo done. Subjective Date patient seen: February 16, 2019 Time patient seen: 17:40 Constitutional: Reports: weakness HEENT: Reports: no symptoms Cardiovascular: Reports: no symptoms Respiratory: Reports: no symptoms Gastrointestinal/Abdominal: Reports: no symptoms Genitourinary: Reports: no symptoms Neurologic/Psychiatric: Reports: no symptoms Endocrine: Reports: no symptoms Hematologic/Lymphatic: Reports: no symptoms Allergies: Coded Allergies: No Known Allergies (Unverified , 12/12/18) Subjective Pt has pus drainning from his LT ear at the rehab for past 2-3 days. afebrile. no sob or chest pain. Objective Last 24 Hour Vital Signs Date Time Temp Pulse Resp B/P (MAP) Pulse Ox O2 Delivery O2 Flow Rate FiO2 02/16/19 17:38 98.6 82 17 122/42 98 Room Air 02/16/19 17:19 78 20 98 Room Air 21 02/16/19 17:18 72 23 97 Room Air 21 02/16/19 17:17 72 23 Room Air 21 02/16/19 15:41 98.8 75 17 113/75 98 Room Air 02/16/19 15:34 98.8 76 16 93 Room Air Laboratory Tests 02/16/19 16:20: White Blood Count 10.6, Red Blood Count 4.93, Hemoglobin 13.6L, Hematocrit 40.3L , Mean Corpuscular Volume 82, Mean Corpuscular Hemoglobin 27.6, Mean Corpuscular Hemoglobin Concent 33.7, Red Cell Distribution Width 14.0, Platelet Count 221, Mean Platelet Volume 5.6L, Neutrophils (%) (Auto) 75.1H, Lymphocytes (%) (Auto) 12.8L, Monocytes (%) (Auto) 10.1H, Eosinophils (%) (Auto) 1.1, Basophils (%) (Auto) 0.9, Prothrombin Time 11.4, Prothromb Time International Ratio 1.1, Activated Partial Thromboplast Time 29, Sodium Level 135L, Potassium Level 4.4, Chloride Level 104, Carbon Dioxide Level 22, Anion Gap 9, Blood Urea Nitrogen 11, Creatinine 0.8, Estimat Glomerular Filtration Rate , Glucose Level 127H, Calcium Level 8.8, Total Bilirubin 0.6, Aspartate Amino Transf (AST/SGOT) 21, Alanine Aminotransferase (ALT/SGPT) 17, Alkaline Phosphatase 66, Total Protein 7.6, Albumin 2.8L, Globulin 4.8, Albumin/Globulin Ratio 0.6L, Lipase 128 Height (Feet): 5 Height (Inches): 9.00 Weight (Pounds): 190 General Appearance: no apparent distress, alert EENT: other - + pus draining from lt ear Neck: non-tender Cardiovascular: normal rate, regular rhythm Respiratory/Chest: lungs clear, normal breath sounds Abdomen: normal bowel sounds, non tender, soft Extremities: normal range of motion, non-tender Edema: no edema noted Arm (L), no edema noted Arm (R), no edema noted Leg (L), no edema noted Leg (R), no edema noted Pedal (L), no edema noted Pedal (R), no edema noted Generalized Neurologic: alert, responsive Skin: warm/dry Lymphatic: normal anterior cervical (L), normal anterior cervical (R), normal posterior cervical (L), normal posterior cervical (R), normal submandibular (L) , normal submandibular (R), normal supraclavicular (L), normal supraclavicular ( R), normal axillary (L), normal axillary (R), normal inguinal (L), normal inguinal (R), normal other Mitesh Ward MD February 16, 2019 17:48
--- NOTE | 2019-02-16 17:49 | Emergency Room Report ---
History of Present Illness General Chief Complaint: Earache Source: Medical Record, EMS Present Illness HPI Patient presents with complaints of discharge from the left ear patient himself has severe underlying dementia psychiatric condition and is not able to provide history himself History is obtained from nursing facility notes In the history of present illness is significantly limited There was no reports of vomiting unknown regarding fever There was no reports of headache No reports of other trauma Allergies: Coded Allergies: No Known Allergies (Unverified , 12/12/18) Patient History Limited by: medical condition Past Medical History: see triage record Pertinent Family History: none Reviewed Nursing Documentation: PMH: Agreed; PSxH: Agreed Nursing Documentation-PMH Hx Cardiac Problems: Yes Hx Hypertension: Yes Hx Diabetes: Yes Hx Cancer: No Hx Gastrointestinal Problems: Yes Hx Neurological Problems: Yes Hx Cerebrovascular Accident: Yes Hx Aphasia: Yes Review of Systems All Other Systems: limited - Other than the ones mentioned in the history of present illness all others are reviewed however they do stay limited due to the patient's mental status Physical Exam Vital Signs Date Time Temp Pulse Resp B/P (MAP) Pulse Ox O2 Delivery O2 Flow Rate FiO2 02/16/19 15:34 98.8 76 16 93 Room Air 02/16/19 15:41 113/75 02/16/19 17:17 21 Sp02 EP Interpretation: reviewed, normal General Appearance: no apparent distress Head: normocephalic, atraumatic Eyes: bilateral eye PERRL ENT: other - Copious amount discharge from the left ear, after initial clearing attempt is made however cannot clearly see the tympanic membrane, I do not appreciate any obvious foreign body Neck: supple Respiratory: no respiratory distress, no retraction, wheezing Cardiovascular #1: regular rate, rhythm Gastrointestinal: non tender, soft Musculoskeletal: other - Patient chronically debilitated is able to reach upward with his both hands, Neurologic: responsive - Makes eye contact is awake Skin: normal color, no rash Lymphatic: no adenopathy Medical Decision Making Diagnostic Impression: Primary Impression: Mastoiditis Additional Impressions: Otitis externa Otitis media ER Course Given the patient's history and presentation there is concern regarding malignant otitis externa, other mastoiditis CT imaging is done Does not reveal any obvious abscess however there is evidence of mastoiditis and otitis media with externa Patient placed on antibiotics ENT is being consulted Patient's primary physician is in the ER as well and will admit for further care Labs Test 02/16/19 16:20 White Blood Count 10.6 K/UL (4.8-10.8) Red Blood Count 4.93 M/UL (4.70-6.10) Hemoglobin 13.6 G/DL (14.2-18.0) Hematocrit 40.3 % (42.0-52.0) Mean Corpuscular Volume 82 FL (80-99) Mean Corpuscular Hemoglobin 27.6 PG (27.0-31.0) Mean Corpuscular Hemoglobin Concent 33.7 G/DL (32.0-36.0) Red Cell Distribution Width 14.0 % (11.6-14.8) Platelet Count 221 K/UL (150-450) Mean Platelet Volume 5.6 FL (6.5-10.1) Neutrophils (%) (Auto) 75.1 % (45.0-75.0) Lymphocytes (%) (Auto) 12.8 % (20.0-45.0) Monocytes (%) (Auto) 10.1 % (1.0-10.0) Eosinophils (%) (Auto) 1.1 % (0.0-3.0) Basophils (%) (Auto) 0.9 % (0.0-2.0) Prothrombin Time 11.4 SEC (9.30-11.50) Prothromb Time International Ratio 1.1 (0.9-1.1) Activated Partial Thromboplast Time 29 SEC (23-33) Sodium Level 135 MMOL/L (136-145) Potassium Level 4.4 MMOL/L (3.5-5.1) Chloride Level 104 MMOL/L (98-107) Carbon Dioxide Level 22 MMOL/L (21-32) Anion Gap 9 mmol/L (5-15) Blood Urea Nitrogen 11 mg/dL (7-18) Creatinine 0.8 MG/DL (0.55-1.30) Estimat Glomerular Filtration Rate mL/min (>60) Glucose Level 127 MG/DL (74-106) Calcium Level 8.8 MG/DL (8.5-10.1) Total Bilirubin 0.6 MG/DL (0.2-1.0) Aspartate Amino Transf (AST/SGOT) 21 U/L (15-37) Alanine Aminotransferase (ALT/SGPT) 17 U/L (12-78) Alkaline Phosphatase 66 U/L (46-116) Total Protein 7.6 G/DL (6.4-8.2) Albumin 2.8 G/DL (3.4-5.0) Globulin 4.8 g/dL Albumin/Globulin Ratio 0.6 (1.0-2.7) Lipase 128 U/L (73-393) Rhythm Strip Diag. Results EP Interpretation: yes Rate: 60 Rhythm: NSR, no PVC's, no ectopy CT/MRI/US Diagnostic Results CT/MRI/US Diagnostic Results : Impression CT maxillofacialIMPRESSION: Acute on chronic left mastoiditis, otitis media and suggestion of left external otitis. No abscess identified. Last Vital Signs Date Time Temp Pulse Resp B/P (MAP) Pulse Ox O2 Delivery O2 Flow Rate FiO2 02/16/19 17:38 98.6 82 17 122/42 98 Room Air 02/16/19 17:19 21 Status: improved Disposition: ADMITTED INPATIENT Condition: Serious Referrals: Mitesh Ward MD (PCP) Katie Barone DO February 16, 2019 17:49
--- NOTE | 2019-02-16 18:15 | NUR ---
ED Nurse Note: Report given to Lis MARTE of med Surg unit.
--- NOTE | 2019-02-16 18:35 | NUR ---
ED Nurse Note: Pt transferred to Med Surg unit via gurney with no belongings. VSS.
--- NOTE | 2019-02-16 19:40 | NUR ---
NURSE NOTES: Pt is awake but unable to follow commands. Noted liquid drainage from left ear. Pt is supine in bed bed locked in lowest position, bed alarm on. R hand [address] abx running. Pt is on room air. Will continue to monitor. Will get orders as pt was just brought to the floor at the end of day shift.
[2019-02-16 20:00] VITALS: BP 127/68
[2019-02-16] MEDS: Lisinopril 2.5mg tab ORAL SCH (20:45)
[2019-02-16] MEDS ORDERED: LORazepam 1mg tab ORAL PRN (20:45)
--- NOTE | 2019-02-16 20:59 | Infectious Diseases Prog Note ---
Assessment/Plan Problems: (1) Mastoiditis Assessment & Plan: acute on chronic, will need ENT eval for possible surgical debridement , will start vancomycin and zosyn empirically. will order CT of the temporal bone to rule out tegmen dehiscence. (2) Otitis media Assessment & Plan: complicated with mastoiditis , needs ENT eval, continue vancomycin and zosyn , culture ear draining . (3) Otitis externa Assessment & Plan: with bleeding possible malignant otitis externa, start zosyn to cover for possible pseudomonas aeruginosa infection, culture ear drainage, ENT eval (4) Acute metabolic encephalopathy Assessment & Plan: due to the above, continue wide spectrum antibiotics and hydration, MRI image of the brain if no improvement Subjective Allergies: Coded Allergies: No Known Allergies (Unverified , 12/12/18) Objective Vital Signs Last 24 Hour Vital Signs Date Time Temp Pulse Resp B/P (MAP) Pulse Ox O2 Delivery O2 Flow Rate FiO2 02/16/19 20:00 98.3 71 18 127/68 (87) 02/16/19 18:35 98.3 75 18 114/92 99 Room Air 02/16/19 17:38 98.6 82 17 122/42 98 Room Air 02/16/19 17:19 78 20 98 Room Air 21 02/16/19 17:18 72 23 97 Room Air 21 02/16/19 17:17 72 23 Room Air 21 02/16/19 15:41 98.8 75 17 113/75 98 Room Air 02/16/19 15:34 98.8 76 16 93 Room Air Height (Feet): 5 Height (Inches): 9.00 Weight (Pounds): 190 Laboratory Tests Test 02/16/19 16:20 White Blood Count 10.6 K/UL (4.8-10.8) Red Blood Count 4.93 M/UL (4.70-6.10) Hemoglobin 13.6 G/DL (14.2-18.0) L Hematocrit 40.3 % (42.0-52.0) L Mean Corpuscular Volume 82 FL (80-99) Mean Corpuscular Hemoglobin 27.6 PG (27.0-31.0) Mean Corpuscular Hemoglobin Concent 33.7 G/DL (32.0-36.0) Red Cell Distribution Width 14.0 % (11.6-14.8) Platelet Count 221 K/UL (150-450) Mean Platelet Volume 5.6 FL (6.5-10.1) L Neutrophils (%) (Auto) 75.1 % (45.0-75.0) H Lymphocytes (%) (Auto) 12.8 % (20.0-45.0) L Monocytes (%) (Auto) 10.1 % (1.0-10.0) H Eosinophils (%) (Auto) 1.1 % (0.0-3.0) Basophils (%) (Auto) 0.9 % (0.0-2.0) Prothrombin Time 11.4 SEC (9.30-11.50) Prothromb Time International Ratio 1.1 (0.9-1.1) Activated Partial Thromboplast Time 29 SEC (23-33) Sodium Level 135 MMOL/L (136-145) L Potassium Level 4.4 MMOL/L (3.5-5.1) Chloride Level 104 MMOL/L (98-107) Carbon Dioxide Level 22 MMOL/L (21-32) Anion Gap 9 mmol/L (5-15) Blood Urea Nitrogen 11 mg/dL (7-18) Creatinine 0.8 MG/DL (0.55-1.30) Estimat Glomerular Filtration Rate mL/min (>60) Glucose Level 127 MG/DL (74-106) H Calcium Level 8.8 MG/DL (8.5-10.1) Total Bilirubin 0.6 MG/DL (0.2-1.0) Aspartate Amino Transf (AST/SGOT) 21 U/L (15-37) Alanine Aminotransferase (ALT/SGPT) 17 U/L (12-78) Alkaline Phosphatase 66 U/L (46-116) Total Protein 7.6 G/DL (6.4-8.2) Albumin 2.8 G/DL (3.4-5.0) L Globulin 4.8 g/dL Albumin/Globulin Ratio 0.6 (1.0-2.7) L Lipase 128 U/L (73-393) Current Medications Medications (Trade) Dose Ordered Sig/Heber Route PRN Reason Start Time Stop Time Status Last Admin Dose Admin Iopamidol (Isovue-300 100ml) 100 ml NOW PRN INJ Radiology Procedure 02/16/19 16:30 02/18/19 16:19 Francisco Martinez M.D. February 16, 2019 20:58
[2019-02-16] MEDS: Depakote 125mg Sprinkles ORAL SCH (21:00)
[2019-02-16] MEDS: Doxazosin 1mg Tab ORAL SCH (21:00)
[2019-02-17] VITALS: BP 114/62
[2019-02-17] MEDS: Piperacillin/Tazobactam 3.375 GM in NS 110 ML IVPB SCH ×3 (01:35→17:47)
[2019-02-17 04:00] VITALS: BP 129/63
[2019-02-17] MEDS: Vancomycin 1gm/D5W 275ml IVPB SCH ×4 (05:44→16:19)
[2019-02-17 08:00] VITALS: BP 118/66
--- NOTE | 2019-02-17 08:00 | NUR ---
HAND-OFF: Report given to Brisa King RN.
--- NOTE | 2019-02-17 08:15 | NUR ---
NURSE NOTES: pt in bed with no sob nor in any form of distress noted. noted with slight drainage from (L) ear. denies pain at this time. Afebrile. kept clean and comfortable. bed in lowest position. call light within reach at all time. will continue to monitor
[2019-02-17] MEDS: Vitamin B-12 500mcg tab ORAL SCH (08:57)
[2019-02-17] MEDS: Lisinopril 2.5mg tab ORAL SCH (08:57)
[2019-02-17] MEDS: Docusate 100mg cap ORAL SCH (08:58)
[2019-02-17 09:19] LABS: BASOPHILS % (AUTO) 0.5 % (0.0-2.0); EOSINOPHILS % (AUTO) 1.2 % (0.0-3.0); HEMATOCRIT 41.3 % (42.0-52.0); HEMOGLOBIN 13.8 G/DL (14.2-18.0); LYMPHOCYTES % (AUTO) 18.9 % (20.0-45.0); MEAN CORPUSCULAR VOLUME 82 FL (80-99); MONOCYTES % (AUTO) 9.4 % (1.0-10.0); NEUTROPHILS % (AUTO) 70.1 % (45.0-75.0); PLATELET COUNT 219 K/UL (150-450); RED BLOOD COUNT 5.01 M/UL (4.70-6.10); RED CELL DISTRIBUTION WIDTH 14.4 % (11.6-14.8); WHITE BLOOD COUNT 9.2 K/UL (4.8-10.8)
[2019-02-17 09:21] LABS: ANION GAP 11 mmol/L (5-15); BLOOD UREA NITROGEN 9 mg/dL (7-18); CALCIUM 8.8 MG/DL (8.5-10.1); CARBON DIOXIDE 26 MMOL/L (21-32); CHLORIDE 103 MMOL/L (98-107); CREATININE 0.9 MG/DL (0.55-1.30); SODIUM 140 MMOL/L (136-145)
[2019-02-17 12:00] VITALS: BP 131/70
--- NOTE | 2019-02-17 13:04 | NUR ---
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 OTITIS EXTERNA VS: BP 122/42, P 76, T 98.8, RR 16, SpO2 93 H&H 13.6/40.3, Na 135 IS:PROVENTIL 5mh HHN ZOSYN 110ml IVPB VANCOMYCIN HCI 275ml IVPB ADMITTED TO MED/SURG DCP: RETURN TO [facility]
[2019-02-17 16:00] VITALS: BP 124/57
--- NOTE | 2019-02-17 16:42 | Infectious Diseases Prog Note ---
Assessment/Plan Problems: (1) Mastoiditis Assessment & Plan: acute on chronic, recommend ENT eval for possible surgical debridement , continue vancomycin and zosyn empirically. will order CT of the temporal bone to rule out tegmen dehiscence. (2) Otitis media Assessment & Plan: complicated with mastoiditis , needs ENT eval, continue vancomycin and zosyn , pending culture of the ear draining . 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, continue zosyn to cover for possible pseudomonas aeruginosa infection, pending ear drainage culture , and ENT eval (5) Acute metabolic encephalopathy Assessment & Plan: due to the above, continue wide spectrum antibiotics and hydration, MRI image of the brain if no improvement Subjective ROS Limited/Unobtainable: Yes Allergies: Coded Allergies: No Known Allergies (Unverified , 12/12/18) Subjective He was resting in bed comfortable, more awake and responsive, nonverbal, no fever or chills, copious discharge coming out of his left ear , serosanguineous Objective Vital Signs Last 24 Hour Vital Signs Date Time Temp Pulse Resp B/P (MAP) Pulse Ox O2 Delivery O2 Flow Rate FiO2 02/17/19 12:00 98.0 65 18 131/70 (90) 97 02/17/19 09:00 Room Air 02/17/19 08:57 118/66 02/17/19 08:00 97.6 75 18 118/66 (83) 97 02/17/19 04:00 98.0 68 18 129/63 (85) 95 02/17/19 00:00 98.9 77 18 114/62 (79) 93 02/16/19 21:00 Room Air 02/16/19 20:45 127/68 02/16/19 20:16 Room Air 02/16/19 20:00 98.3 71 18 127/68 (87) 02/16/19 18:35 98.3 75 18 114/92 99 Room Air 02/16/19 17:38 98.6 82 17 122/42 98 Room Air 02/16/19 17:19 78 20 98 Room Air 21 02/16/19 17:18 72 23 97 Room Air 21 02/16/19 17:17 72 23 Room Air 21 Height (Feet): 5 Height (Inches): 9.00 Weight (Pounds): 190 General Appearance: WD/WN, no acute distress, cachetic HEENT: normocephalic, atraumatic, anicteric, mucous membranes moist, PERRL, supple, no JVD, other - left ear significant discharge Respiratory/Chest: chest wall non-tender, lungs clear, normal breath sounds, no respiratory distress, no accessory muscle use Cardiovascular: normal peripheral pulses, normal rate, regular rhythm, no gallop/murmur, no JVD Abdomen: normal bowel sounds, soft, non tender, no organomegaly, non distended , no mass, no scars Extremities: no cyanosis, no clubbing Skin: no rash, no lesions, no ulcers Neurologic/Psychiatric: alert, unresponsiveness, aphasia Lymphatic: no neck adenopathy, no groin adenopathy Musculoskeletal: normal muscle bulk, no effusion Microbiology Date/Time Source Procedure Growth Status 02/16/19 16:20 Blood Blood Culture - Preliminary Resulted 02/16/19 16:30 Ear Left Ear Culture - Preliminary NO GROWTH AFTER 48 HOURS Resulted Laboratory Tests Test 02/17/19 08:30 White Blood Count 9.2 K/UL (4.8-10.8) Red Blood Count 5.01 M/UL (4.70-6.10) Hemoglobin 13.8 G/DL (14.2-18.0) L Hematocrit 41.3 % (42.0-52.0) L Mean Corpuscular Volume 82 FL (80-99) Mean Corpuscular Hemoglobin 27.5 PG (27.0-31.0) Mean Corpuscular Hemoglobin Concent 33.3 G/DL (32.0-36.0) Red Cell Distribution Width 14.4 % (11.6-14.8) Platelet Count 219 K/UL (150-450) Mean Platelet Volume 6.6 FL (6.5-10.1) Neutrophils (%) (Auto) 70.1 % (45.0-75.0) Lymphocytes (%) (Auto) 18.9 % (20.0-45.0) L Monocytes (%) (Auto) 9.4 % (1.0-10.0) Eosinophils (%) (Auto) 1.2 % (0.0-3.0) Basophils (%) (Auto) 0.5 % (0.0-2.0) Sodium Level 140 MMOL/L (136-145) Potassium Level 4.0 MMOL/L (3.5-5.1) Chloride Level 103 MMOL/L (98-107) Carbon Dioxide Level 26 MMOL/L (21-32) Anion Gap 11 mmol/L (5-15) Blood Urea Nitrogen 9 mg/dL (7-18) Creatinine 0.9 MG/DL (0.55-1.30) Estimat Glomerular Filtration Rate mL/min (>60) Glucose Level 123 MG/DL (74-106) H Hemoglobin A1c 5.5 % (4.3-6.0) Calcium Level 8.8 MG/DL (8.5-10.1) Current Medications Medications (Trade) Dose Ordered Sig/Heber Route PRN Reason Start Time Stop Time Status Last Admin Dose Admin Acetaminophen (Tylenol) 325 mg Q4H PRN ORAL Mild Pain/Temp > 100.5 02/16/19 20:45 03/18/19 20:44 Cyanocobalamin (Vitamin B-12) 500 mcg DAILY ORAL 02/17/19 09:00 03/19/19 08:59 02/17/19 08:57 Divalproex Sodium (Depakote Sprinkles) 125 mg BEDTIME ORAL 02/16/19 21:00 03/18/19 20:59 02/16/19 21:00 Docusate Sodium (Colace) 100 mg DAILY ORAL 02/17/19 09:00 03/19/19 08:59 02/17/19 08:58 Doxazosin Mesylate (Cardura) 2 mg BEDTIME ORAL 02/16/19 21:00 03/18/19 20:59 02/16/19 21:00 Escitalopram Oxalate (Lexapro) 10 mg DAILY ORAL 02/17/19 09:00 03/19/19 08:59 02/17/19 09:00 Lisinopril (Zestril) 5 mg DAILY ORAL 02/16/19 20:45 03/18/19 20:44 02/17/19 08:57 Lorazepam (Ativan) 2 mg Q6H PRN ORAL Agitation 02/16/19 20:45 02/23/19 20:44 Multivitamins (Multivitamins) 1 tab DAILY ORAL 02/17/19 09:00 03/19/19 08:59 02/17/19 08:57 Piperacillin Sod/ Tazobactam Sod 3.375 gm/Sodium Chloride 110 ml @ 27.5 mls/hr Q8H IVPB 02/17/19 01:00 02/24/19 00:59 02/17/19 08:56 Vancomycin HCl (Vanco rx to dose) 1 ea DAILY PRN MISC Per rx protocol 02/16/19 20:45 03/18/19 20:44 Vancomycin HCl 1 gm/Dextrose 275 ml @ 183.708 mls/hr Q12H IVPB 02/17/19 05:00 02/22/19 04:59 02/17/19 16:19 Francisco Martinez M.D. February 17, 2019 16:42
--- NOTE | 2019-02-17 17:44 | General Progress Note ---
Assessment/Plan Status: stable Assessment/Plan: 1. Otitis media and Externia - cont Vanco and Zosyn IV. ENT consult pending. Follow cultures. 2. Acute on chronic Mastoiditis - ENT consult with DR Gomez Elizondo pending. 3. HTN - cont home meds. 4. CVA with hemiplegia - stable. 5. bipolar disorder - stable. 6. HLD - cont home med. Subjective Date patient seen: February 17, 2019 Time patient seen: 17:00 Constitutional: Reports: weakness HEENT: Reports: ear discharge Cardiovascular: Reports: no symptoms Respiratory: Reports: no symptoms Gastrointestinal/Abdominal: Reports: no symptoms Genitourinary: Reports: no symptoms Neurologic/Psychiatric: Reports: no symptoms Endocrine: Reports: no symptoms Hematologic/Lymphatic: Reports: no symptoms Allergies: Coded Allergies: No Known Allergies (Unverified , 12/12/18) Subjective Pt still has pus drainning from his LT ear. afebrile. no sob or chest pain. Objective Last 24 Hour Vital Signs Date Time Temp Pulse Resp B/P (MAP) Pulse Ox O2 Delivery O2 Flow Rate FiO2 02/17/19 16:00 98.6 70 18 124/57 (79) 96 02/17/19 12:00 98.0 65 18 131/70 (90) 97 02/17/19 09:00 Room Air 02/17/19 08:57 118/66 02/17/19 08:00 97.6 75 18 118/66 (83) 97 02/17/19 04:00 98.0 68 18 129/63 (85) 95 02/17/19 00:00 98.9 77 18 114/62 (79) 93 02/16/19 21:00 Room Air 02/16/19 20:45 127/68 02/16/19 20:16 Room Air 02/16/19 20:00 98.3 71 18 127/68 (87) 02/16/19 18:35 98.3 75 18 114/92 99 Room Air Intake and Output 02/16/19 02/17/19 19:00 07:00 Intake Total 110 ml Output Total 100 ml Balance 110 ml -100 ml Intake Oral 0 ml IV Total 110 ml Output Urine Total 100 ml # Bowel Movements 2 Laboratory Tests 02/17/19 08:30: White Blood Count 9.2, Red Blood Count 5.01, Hemoglobin 13.8L, Hematocrit 41.3L , Mean Corpuscular Volume 82, Mean Corpuscular Hemoglobin 27.5, Mean Corpuscular Hemoglobin Concent 33.3, Red Cell Distribution Width 14.4, Platelet Count 219, Mean Platelet Volume 6.6, Neutrophils (%) (Auto) 70.1, Lymphocytes (% ) (Auto) 18.9L, Monocytes (%) (Auto) 9.4, Eosinophils (%) (Auto) 1.2, Basophils (%) (Auto) 0.5, Sodium Level 140, Potassium Level 4.0, Chloride Level 103, Carbon Dioxide Level 26, Anion Gap 11, Blood Urea Nitrogen 9, Creatinine 0.9, Estimat Glomerular Filtration Rate , Glucose Level 123H, Hemoglobin A1c 5.5, Calcium Level 8.8 Height (Feet): 5 Height (Inches): 9.00 Weight (Pounds): 190 General Appearance: no apparent distress, alert EENT: other - drainning pus from Lt ear Neck: non-tender, supple Cardiovascular: normal peripheral pulses, normal rate, regular rhythm Respiratory/Chest: chest wall non-tender, lungs clear, normal breath sounds Abdomen: non tender, soft, no organomegaly Extremities: normal range of motion, non-tender Edema: no edema noted Arm (L), no edema noted Arm (R), no edema noted Leg (L), no edema noted Leg (R), no edema noted Pedal (L), no edema noted Pedal (R), no edema noted Generalized Neurologic: alert, responsive Skin: warm/dry Lymphatic: normal anterior cervical (L), normal anterior cervical (R), normal posterior cervical (L), normal posterior cervical (R), normal submandibular (L) , normal submandibular (R), normal supraclavicular (L), normal supraclavicular ( R), normal axillary (L), normal axillary (R), normal inguinal (L), normal inguinal (R), normal other Mitesh Ward MD February 17, 2019 17:44
--- NOTE | 2019-02-17 19:30 | NUR ---
NURSE NOTES: Received report from Jonathan Jimenez RN. Pt is resting in the bed w/o any acute distress in RA at this time. Endorsed that condom cath. recommended d/t incontinent but it is not in good fitting. Will try one again later. L. ear drainage noted, SANDOR, kept clean. Bed alarm is on, bed in the lowest w/ side rails up x2, and breaks are engaged. Call light and side table w/in reach. Will follow plans of care.
--- NOTE | 2019-02-17 19:41 | NUR ---
HAND-OFF: Report given to ESTUARDO cleaning.
--- NOTE | 2019-02-17 19:41 | NUR ---
HAND-OFF: Report given to [].
[2019-02-17 20:00] VITALS: BP 110/71
[2019-02-17] MEDS: Doxazosin 1mg Tab ORAL SCH (21:00)
[2019-02-17] MEDS: Depakote 125mg Sprinkles ORAL SCH (21:01)
--- NOTE | 2019-02-17 22:30 | Consultation ---
DATE OF CONSULTATION: 02/16/2019 INFECTIOUS DISEASE CONSULTATION CONSULTING PHYSICIAN: Francisco Martinez M.D. REQUESTING PHYSICIAN: Mitesh Ward M.D. REASON FOR CONSULTATION: Acute left mastoiditis on top of chronic with otitis media and possible otitis externa. Recommendation for antimicrobial treatment. HISTORY OF PRESENT ILLNESS: The patient is an 78-year-old male with past medical history of coronary artery disease, hypertension, diabetes, gastroesophageal reflux disease, dementia, CVA, and aphasia was [facility] due to discharge mainly from his left ear. It is unclear for how long he had his discharge, but it reported that it was bloody at some point. The patient's discharge was continuous and copious, which prompts sending him to the emergency room for evaluation. In ED, the patient's temperature was 98.8 with a pulse of 76, saturating 93% on room air. On physical exam, he had copious amount of discharge from his left ear with no evidence of foreign body. CT scan of the head showed evidence of acute on chronic mastoiditis with otitis media and otitis externa. So, he had antibiotics started in the emergency room and Infectious Disease consultation was requested for antibiotics treatment and further management. As of note, the patient is a poor historian and cannot provide any history. History was mainly obtained from the medical record and nursing staff. REVIEW OF SYSTEMS: Unable to obtain. The patient is demented and aphasic. He cannot provide any history. PAST MEDICAL HISTORY: Significant for coronary artery disease, hypertension, diabetes, GERD, CVA, and aphasia. PAST SURGICAL HISTORY: Not on record. MEDICATIONS: The patient received vancomycin and Zosyn in the ED. For the rest of his medications, please refer to [facility]. ALLERGIES: No known drug allergies. FAMILY HISTORY: Unable to obtain. SOCIAL HISTORY: He is a [facility] resident. No recent drugs, tobacco, or alcohol abuse.. LABORATORY DATA: Labs showed white count of 10.6, hemoglobin of 13.6, platelet count of 221,000, and neutrophils of 75.1%. BUN of 11 and creatinine of 0.8. AST of 21 and ALT of 17. IMAGING: CT scan of the maxillary facial area with contrast showed acute on chronic left mastoiditis, otitis media, and suggestion of left external otitis. No abscess identified. PHYSICAL EXAMINATION: Temperature 98.6, pulse 82, respirations 17, blood pressure 122/42, and saturation 98% on room air. GENERAL: An elderly male, lying in bed, awake, but lethargic with copious amount of drainage from his left ear, not in acute distress. Moves his neck freely. HEENT: Normocephalic and atraumatic. Pupils reactive to light equally. Pale sclerae. Moist oral mucosa. Unable to assess oral cavity. Left ear copious serosanguineous discharge mixed with some bloody material. Unable to approach his ear. The patient is defensive. Does not allow ear exam. NECK: Supple. No lymphadenopathy. CARDIOVASCULAR: Regular rate and rhythm. No murmur or gallop. LUNGS: Clear bilaterally. No wheezing or rhonchi. Diminished breathing sounds at the bases. ABDOMEN: Soft, nontender, and nondistended. Normal bowel sounds. No hepatosplenomegaly or ascites. EXTREMITY: No edema or cyanosis. SKIN: No rash. No hives. No ulceration. ASSESSMENT AND RECOMMENDATION: 1. Acute on chronic mastoiditis. The patient may need surgical debridement. We will start vancomycin and Zosyn empiric coverage for now and order a CT scan of the temporal bone to rule out tegmen dehiscence. We will culture his ear discharge and his blood to rule out bacteremia. 2. Otitis media. Unclear whether acute or chronic, but complicated with mastoiditis, which suggests chronic process. Need ENT evaluation for possible debridement. Continue vancomycin and Zosyn for now, wide spectrum coverage. Culture ear draining and blood. Obtained brain image to rule out complication such as brain abscess. 3. Otitis externa with bleeding, possible malignant otitis externa. Start Zosyn to cover for possible Pseudomonas infection and continue vancomycin for methicillin-resistant Staphylococcus aureus coverage. Culture ear drainage. ENT evaluation will be warranted. 4. Acute metabolic encephalopathy due to the above. Continue wide-spectrum antibiotics with hydration. MRI of the brain to rule out complication and if no improvement. Thank you for the consult. ID will continue to follow. Francisco Martinez M.D. DR: MARIA C JOB#: [id number] CC:
[2019-02-18] VITALS: BP 115/68
--- NOTE | 2019-02-18 00:30 | History and Physical Report ---
DATE OF ADMISSION: 02/16/2019 HISTORY OF PRESENT ILLNESS: This is an 86-year-old male, who resides at the [facility], was brought in for complaint of a copious amount of discharge from the right ear for the past two to three days. The patient does not have any fever or chills, but has serosanguineous discharge from the ear. No nausea or vomiting. No shortness of breath or chest pain. The patient had a CT of the brain done. The patient had a maxillofacial CT done showing acute on chronic left mastoiditis, otitis media, and suggestion of a left external otitis, but no abscess was seen. The patient was started on intravenous antibiotic in the emergency room with Zosyn and vancomycin and ENT was consulted for further evaluation of possible surgical drainage if needed. PAST MEDICAL HISTORY: Includes history of hypertension, CVA with hemiplegia, constipation, and bipolar disorder. PAST SURGICAL HISTORY: None. MEDICATION: Please review the chart medication. ALLERGIES: No known drug allergy. SOCIAL HISTORY: Includes no history of alcohol use. No smoking. No intravenous drug use. REVIEW OF SYSTEMS: Negative except for history of present illness. PHYSICAL EXAMINATION: VITAL SIGNS: Includes temperature of 98.8, pulse 76, respirations 16, pulse ox 93 percent on room air, and blood pressure 113/75. GENERAL APPEARANCE: Alert and oriented, but aphasic. HEENT: Normocephalic and normochromic. Extraocular muscles intact. The left ear shows copious amount of serosanguineous discharge. NECK: Supple. No lymphadenopathy. CARDIOVASCULAR: Regular rate and rhythm. No murmur. No gallop. ABDOMEN: Soft, nontender, and nondistended. Positive bowel sounds. RESPIRATORY: Clear to auscultation bilaterally. No wheezing. EXTREMITIES: No edema, cyanosis, or clubbing. SKIN: No rash. NEUROLOGICAL: Responds to commands. LABORATORY AND DIAGNOSTIC DATA: Includes WBC 10.6, hemoglobin 13.6, hematocrit 40.3, platelet count 221,000, lymphocytes 12, and neutrophils 75. Sodium 135, potassium 4.4, BUN 11, creatinine 0.8, and glucose 127. AST is 21 and ALT 17. Albumin 2.8. Lipase is 128. PT is 11.4. INR 1.1. PTT 29. IMPRESSION: 1. Acute versus chronic mastoiditis. We will consult ENT for possible surgical debridement if needed and we will continue intravenous Zosyn and vancomycin, and we will have ID evaluate the patient as well. 2. Otitis media with complication of possible mastitis. Continue intravenous antibiotic as above and follow cultures. 3. Otitis externa. We will continue intravenous antibiotic and follow up the patient as inpatient along with ENT. 4. Hypertension. Continue home medications. 5. CVA with hemiplegia, stable. 6. Bipolar disorder. We will continue home medications. 7. History of constipation. The patient will be admitted for a minimum of 2-night stay for intravenous antibiotic for the diagnosis of mastoiditis. Mitesh Ward M.D. DR: CHARMAINE JOB#: [id number] CC: ROSY
[2019-02-18] MEDS: Piperacillin/Tazobactam 3.375 GM in NS 110 ML IVPB SCH ×3 (00:57→17:32)
--- NOTE | 2019-02-18 02:00 | NUR ---
NURSE NOTES: Pt is sleeping w/o distress in RA. VSS. Will continue to monitor.
[2019-02-18 04:00] VITALS: BP 134/79
[2019-02-18 05:29] LABS: BASOPHILS % (AUTO) 1.1 % (0.0-2.0); EOSINOPHILS % (AUTO) 4.2 % (0.0-3.0); HEMATOCRIT 41.6 % (42.0-52.0); HEMOGLOBIN 13.7 G/DL (14.2-18.0); LYMPHOCYTES % (AUTO) 27.2 % (20.0-45.0); MEAN CORPUSCULAR VOLUME 82 FL (80-99); MONOCYTES % (AUTO) 9.3 % (1.0-10.0); NEUTROPHILS % (AUTO) 58.2 % (45.0-75.0); PLATELET COUNT 224 K/UL (150-450); RED BLOOD COUNT 5.06 M/UL (4.70-6.10); RED CELL DISTRIBUTION WIDTH 14.4 % (11.6-14.8); WHITE BLOOD COUNT 8.4 K/UL (4.8-10.8)
[2019-02-18 05:38] LABS: ANION GAP 9 mmol/L (5-15); BLOOD UREA NITROGEN 14 mg/dL (7-18); CALCIUM 9.1 MG/DL (8.5-10.1); CARBON DIOXIDE 25 MMOL/L (21-32); CHLORIDE 107 MMOL/L (98-107); CREATININE 1.1 MG/DL (0.55-1.30); POTASSIUM 4.4 MMOL/L (3.5-5.1); SODIUM 141 MMOL/L (136-145)
[2019-02-18] MEDS: Vancomycin 1gm/D5W 275ml IVPB SCH ×6 (06:35→21:31)
--- NOTE | 2019-02-18 07:25 | NUR ---
HAND-OFF: Report given to Himanshu Ledezma RN.
--- NOTE | 2019-02-18 07:30 | NUR ---
NURSE NOTES: Received patient in bed, awake, patient answers with head gesture @ this time. Denies any pain or discomfort. Left ear with brownish colored drainage without foul smell. Proper care done. IV intact, no s/s of infiltration. Patient is having breakfast without difficulties. Call light within reach, bed is in lowest position and locked. Room board updated.Will continue plan of care.
[2019-02-18 08:00] VITALS: BP 111/62
[2019-02-18] MEDS: Docusate 100mg cap ORAL SCH (08:28)
[2019-02-18] MEDS: Lisinopril 2.5mg tab ORAL SCH (08:28)
[2019-02-18] MEDS: Vitamin B-12 500mcg tab ORAL SCH (08:39)
--- NOTE | 2019-02-18 11:30 | NUR ---
NURSE NOTES: Patient refused blood sugar check. Rn re-educated on that. Patient waved his arm and said "No". No s/s of hypoglycemia. Will continue to monitor.
[2019-02-18 12:00] VITALS: BP 124/63
--- NOTE | 2019-02-18 15:47 | NUR ---
NURSE NOTES:WOUND CARE NOTES:Pt initially resistive to having skin assessed then reluctantly complied after being encourage to participate.Dry,Dark skin tone without erythema or fluctuance noted to sacral area ,R and L clefts of buttocks.Erythema noted to scrotal sac. Pt denied pain or tenderness when areas palpated. R and L heels are boggy with non-blanchable erythema. Pt denied pain or tenderness when heels minimally palpated. No other areas of skin concerns noted. Tx.Plan: Apply Moisture Barrier Paste to Scrotum and Bilat groin areas with each incontinence care. Apply Moisture Barrier Paste to Sacrum. Cover with Optifoam drsg. Change every 3 days and prn. Apply Cavilon Skin Barrier to both heels. Cover each heel with Optifoam drsg. Change every 7 days and prn. Reposition at least every 2hours or as tolerated. Off-load heels with Pillows.
[2019-02-18 16:00] VITALS: BP 118/66
--- NOTE | 2019-02-18 16:19 | General Progress Note ---
Assessment/Plan Status: stable Assessment/Plan: 1. Otitis media and Externia - cont Vanco and Zosyn IV. ENT consult pending. Follow cultures. 2. Acute on chronic Mastoiditis - ENT consult with DR Gomez Elizondo pending. 3. Possible sepsis - cont IV Abx as above. 4. HTN - cont home meds. 5. CVA with hemiplegia - stable. 6. bipolar disorder - stable. 7. HLD - cont home med. Subjective Date patient seen: February 18, 2019 Time patient seen: 16:00 Constitutional: Reports: weakness HEENT: Reports: no symptoms Cardiovascular: Reports: no symptoms Respiratory: Reports: no symptoms Gastrointestinal/Abdominal: Reports: no symptoms Genitourinary: Reports: no symptoms Neurologic/Psychiatric: Reports: no symptoms Endocrine: Reports: no symptoms Hematologic/Lymphatic: Reports: no symptoms Allergies: Coded Allergies: No Known Allergies (Unverified , 12/12/18) Subjective Pt still has pus drainning from his LT ear but improved. afebrile. no sob or chest pain. Objective Last 24 Hour Vital Signs Date Time Temp Pulse Resp B/P (MAP) Pulse Ox O2 Delivery O2 Flow Rate FiO2 02/18/19 12:00 98.4 65 20 124/63 (83) 94 02/18/19 09:00 Room Air 02/18/19 08:28 111/62 02/18/19 08:00 98.3 66 20 111/62 (78) 94 02/18/19 04:00 98.3 76 18 134/79 (97) 93 02/18/19 00:00 97.8 81 18 115/68 (84) 95 02/17/19 21:00 Room Air 02/17/19 20:00 98.2 78 18 110/71 (84) 94 Intake and Output 02/17/19 02/18/19 19:00 07:00 Intake Total 590.0 ml 201.0 ml Output Total 900 ml Balance -310.0 ml 201.0 ml Intake Oral 480 ml IV Total 110.0 ml 201.0 ml Output Urine Total 900 ml # Voids 3 3 # Bowel Movements 2 1 Laboratory Tests 02/18/19 04:50: White Blood Count 8.4, Red Blood Count 5.06, Hemoglobin 13.7L, Hematocrit 41.6L , Mean Corpuscular Volume 82, Mean Corpuscular Hemoglobin 27.2, Mean Corpuscular Hemoglobin Concent 33.0, Red Cell Distribution Width 14.4, Platelet Count 224, Mean Platelet Volume 7.0, Neutrophils (%) (Auto) 58.2, Lymphocytes (% ) (Auto) 27.2, Monocytes (%) (Auto) 9.3, Eosinophils (%) (Auto) 4.2H, Basophils (%) (Auto) 1.1, Erythrocyte Sedimentation Rate 75H, Sodium Level 141, Potassium Level 4.4, Chloride Level 107, Carbon Dioxide Level 25, Anion Gap 9, Blood Urea Nitrogen 14, Creatinine 1.1, Estimat Glomerular Filtration Rate , Glucose Level 98, Calcium Level 9.1, Vancomycin Level Trough 7.9 Height (Feet): 5 Height (Inches): 9.00 Weight (Pounds): 164 General Appearance: no apparent distress, alert Neck: non-tender, supple Cardiovascular: normal peripheral pulses, normal rate, regular rhythm Respiratory/Chest: chest wall non-tender, lungs clear, normal breath sounds Abdomen: normal bowel sounds, non tender, soft Extremities: normal range of motion, non-tender Edema: no edema noted Arm (L), no edema noted Arm (R), no edema noted Leg (L), no edema noted Leg (R), no edema noted Pedal (L), no edema noted Pedal (R), no edema noted Generalized Neurologic: responsive Skin: warm/dry Lymphatic: normal anterior cervical (L), normal anterior cervical (R), normal posterior cervical (L), normal posterior cervical (R), normal submandibular (L) , normal submandibular (R), normal supraclavicular (L), normal supraclavicular ( R), normal axillary (L), normal axillary (R), normal inguinal (L), normal inguinal (R), normal other Mitesh Ward MD February 18, 2019 16:19
--- NOTE | 2019-02-18 17:05 | Infectious Diseases Prog Note ---
Assessment/Plan Problems: (1) Mastoiditis Assessment & Plan: acute on chronic, recommend ENT eval for possible surgical debridement , continue vancomycin and zosyn empirically. will order CT of the temporal bone to rule out tegmen dehiscence. (2) Otitis media Assessment & Plan: complicated with mastoiditis , needs ENT eval, continue vancomycin and zosyn , pending culture of the ear draining . 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, continue zosyn to cover for possible pseudomonas aeruginosa infection, pending ear drainage culture , and ENT eval (5) Acute metabolic encephalopathy Assessment & Plan: due to the above, continue wide spectrum antibiotics and hydration, MRI image of the brain if no improvement Subjective ROS Limited/Unobtainable: Yes Allergies: Coded Allergies: No Known Allergies (Unverified , 12/12/18) Subjective He was resting in bed comfortable, more awake and responsive, nonverbal, no fever or chills, copious discharge coming out of his left ear , serosanguineous Objective Vital Signs Last 24 Hour Vital Signs Date Time Temp Pulse Resp B/P (MAP) Pulse Ox O2 Delivery O2 Flow Rate FiO2 02/18/19 12:00 98.4 65 20 124/63 (83) 94 02/18/19 09:00 Room Air 02/18/19 08:28 111/62 02/18/19 08:00 98.3 66 20 111/62 (78) 94 02/18/19 04:00 98.3 76 18 134/79 (97) 93 02/18/19 00:00 97.8 81 18 115/68 (84) 95 02/17/19 21:00 Room Air 02/17/19 20:00 98.2 78 18 110/71 (84) 94 Height (Feet): 5 Height (Inches): 9.00 Weight (Pounds): 164 General Appearance: WD/WN, no acute distress, cachetic HEENT: normocephalic, atraumatic, anicteric, mucous membranes moist, PERRL, EOMI, supple, no JVD, other - left ear draining Respiratory/Chest: chest wall non-tender, lungs clear, normal breath sounds, no respiratory distress, no accessory muscle use Cardiovascular: normal peripheral pulses, normal rate, regular rhythm, no gallop/murmur, no JVD Abdomen: normal bowel sounds, soft, non tender, no organomegaly, non distended , no mass, no scars Genitourinary: normal external genitalia Extremities: no cyanosis, no clubbing Skin: no rash, no lesions, ulcers Neurologic/Psychiatric: back gray cloth washer II-XII grossly normal, alert, responsive Lymphatic: no neck adenopathy, no groin adenopathy Musculoskeletal: normal muscle bulk, no effusion Microbiology Date/Time Source Procedure Growth Status 02/16/19 16:35 Blood Blood Culture - Preliminary Gram Positive Cocci Resulted 02/16/19 16:20 Blood Blood Culture - Preliminary Staphylococcus Species Resulted 02/16/19 16:45 Nasal Nares Right MRSA Culture - Final NO METHICILLIN RESISTANT STAPH AUREUS... Complete 02/16/19 16:45 Rectum VRE Culture - Final NO VANCOMYCIN RESISTANT ENTEROCOCCUS ... Complete 02/16/19 16:45 Rectum - Final NO CARBAPENEM-RESISTANT ENTEROBACTERI... Complete 02/16/19 16:30 Ear Left Ear Culture - Preliminary Usual Skin Gladys Resulted Laboratory Tests Test 02/18/19 04:50 White Blood Count 8.4 K/UL (4.8-10.8) Red Blood Count 5.06 M/UL (4.70-6.10) Hemoglobin 13.7 G/DL (14.2-18.0) L Hematocrit 41.6 % (42.0-52.0) L Mean Corpuscular Volume 82 FL (80-99) Mean Corpuscular Hemoglobin 27.2 PG (27.0-31.0) Mean Corpuscular Hemoglobin Concent 33.0 G/DL (32.0-36.0) Red Cell Distribution Width 14.4 % (11.6-14.8) Platelet Count 224 K/UL (150-450) Mean Platelet Volume 7.0 FL (6.5-10.1) Neutrophils (%) (Auto) 58.2 % (45.0-75.0) Lymphocytes (%) (Auto) 27.2 % (20.0-45.0) Monocytes (%) (Auto) 9.3 % (1.0-10.0) Eosinophils (%) (Auto) 4.2 % (0.0-3.0) H Basophils (%) (Auto) 1.1 % (0.0-2.0) Erythrocyte Sedimentation Rate 75 MM/HR (0-20) H Sodium Level 141 MMOL/L (136-145) Potassium Level 4.4 MMOL/L (3.5-5.1) Chloride Level 107 MMOL/L (98-107) Carbon Dioxide Level 25 MMOL/L (21-32) Anion Gap 9 mmol/L (5-15) Blood Urea Nitrogen 14 mg/dL (7-18) Creatinine 1.1 MG/DL (0.55-1.30) Estimat Glomerular Filtration Rate mL/min (>60) Glucose Level 98 MG/DL (74-106) Calcium Level 9.1 MG/DL (8.5-10.1) Vancomycin Level Trough 7.9 ug/mL (5.0-12.0) Current Medications Medications (Trade) Dose Ordered Sig/Heber Route PRN Reason Start Time Stop Time Status Last Admin Dose Admin Acetaminophen (Tylenol) 325 mg Q4H PRN ORAL Mild Pain/Temp > 100.5 02/16/19 20:45 03/18/19 20:44 Cyanocobalamin (Vitamin B-12) 500 mcg DAILY ORAL 02/17/19 09:00 03/19/19 08:59 02/18/19 08:39 Divalproex Sodium (Depakote Sprinkles) 125 mg BEDTIME ORAL 02/16/19 21:00 03/18/19 20:59 02/17/19 21:01 Docusate Sodium (Colace) 100 mg DAILY ORAL 02/17/19 09:00 03/19/19 08:59 02/18/19 08:28 Doxazosin Mesylate (Cardura) 2 mg BEDTIME ORAL 02/16/19 21:00 03/18/19 20:59 02/17/19 21:00 Escitalopram Oxalate (Lexapro) 10 mg DAILY ORAL 02/17/19 09:00 03/19/19 08:59 02/18/19 08:28 Lisinopril (Zestril) 5 mg DAILY ORAL 02/16/19 20:45 03/18/19 20:44 02/18/19 08:28 Lorazepam (Ativan) 2 mg Q6H PRN ORAL Agitation 02/16/19 20:45 02/23/19 20:44 Multivitamins (Multivitamins) 1 tab DAILY ORAL 02/17/19 09:00 03/19/19 08:59 02/18/19 08:28 Piperacillin Sod/ Tazobactam Sod 3.375 gm/Sodium Chloride 110 ml @ 27.5 mls/hr Q8H IVPB 02/17/19 01:00 02/24/19 00:59 02/18/19 08:38 Pravastatin Sodium (Pravachol) 10 mg BEDTIME ORAL 02/17/19 21:00 03/19/19 20:59 02/17/19 21:01 Vancomycin HCl (Vanco rx to dose) 1 ea DAILY PRN MISC Per rx protocol 02/16/19 20:45 03/18/19 20:44 Vancomycin HCl 1 gm/Dextrose 275 ml @ 183.708 mls/hr Q8H IVPB 02/18/19 06:30 02/23/19 06:29 02/18/19 14:33 Francisco Martinez M.D. February 18, 2019 17:05
--- NOTE | 2019-02-18 17:12 | Consultation ---
History of Present Illness General Date patient seen: February 18, 2019 Time patient seen: 17:04 Reason for Hospitalization: Malignant Otitis externa Present Illness HPI Drainage form left ear-history from chart, pt has Dementia Allergies: Coded Allergies: No Known Allergies (Unverified , 12/12/18) Medication History Scheduled Apixaban (Eliquis), 2.5 MG PO TWICE A DAY, (Reported) Cyanocobalamin (Vitamin B-12)* (Vitamin B-12*), 500 MCG ORAL DAILY, (Reported) Dextran 70/Hypromellose (Artificial Tears Eye Drops*), 1 DROP BOTH EYES TWICE A DAY, (Reported) Divalproex Sodium* (Depakote*), 125 MG PO BEDTIME, (Reported) Docusate Sodium* (Docusate Sodium*), 100 MG ORAL DAILY, (Reported) Doxazosin Mesylate* (Cardura*), 2 MG ORAL BEDTIME, (Reported) Escitalopram Oxalate* (Lexapro*), 10 MG ORAL DAILY, (Reported) Lisinopril (Lisinopril*), 5 MG ORAL DAILY, (Reported) Multivitamins* (Multivitamins*), 1 TAB ORAL DAILY, (Reported) Simvastatin (Zocor), 10 MG ORAL BEDTIME, (Reported) Vitamin D (Vitamin D3), 1,000 UNITS ORAL THREE TIMES A DAY, (Reported) Scheduled PRN Acetaminophen* (Acetaminophen 325MG Tablet*), 325 MG ORAL Q4H PRN for Mild Pain/ Temp > 100.5, (Reported) Lorazepam* (Ativan*), 2 MG ORAL Q6H PRN Patient History Limited by: language barrier, other - Dementia History Provided By: Medical Record Healthcare decision maker N Resuscitation status Full Code Advanced Directive on File No Past Medical/Surgical History Past Medical/Surgical History: (1) Behavioral change (2) Otitis media (3) Acute metabolic encephalopathy Review of Systems Review of Symptoms General ROS: no weight loss or fever Psychological ROS: no depression or mood changes, no memory loss Ophthalmic ROS: no visual changes or eye irritation ENT ROS: no nasal congestion, hearing loss, dizziness Allergy and Immunology ROS: no allergic symptoms or urticaria Hematological and Lymphatic ROS: no swollen glands, unusual bleeding or bruising Endocrine ROS: no polyuria, polydipsia, weight changes, temperature intolerance Respiratory ROS: no cough, shortness of breath, or wheezing Cardiovascular ROS: no chest pain or dyspnea on exertion Gastrointestinal ROS: denies abdominal pain, bright red blood in stool. Musculoskeletal ROS: no myalgias or arthralgias Neurological ROS: no TIA or stroke symptoms Dermatological ROS: no new or changing skin lesions, rashes or pruritis Physical Exam Physical Exam General appearance: alert, cooperative, no distress, appears stated age Head: Normocephalic, without obvious abnormality, atraumatic Eyes: conjunctivae/corneas clear. PERRL, EOM's intact. Fundi benign Throat: Lips, mucosa, and tongue normal. Teeth and gums normal Neck: supple, symmetrical, trachea midline, no adenopathy, thyroid: not enlarged, symmetric, no tenderness/mass/nodules, no carotid bruit and no JVD Lungs: clear to auscultation bilaterally Heart: regular rate and rhythm, S1, S2 normal, no murmur, click, rub or gallop Abdomen: soft, non-tender. Bowel sounds normal. No masses, no organomegaly Extremities: extremities normal, atraumatic, no cyanosis or edema Pulses: 2+ and symmetric Skin: Skin color, texture, turgor normal. No rashes or lesions Neurologic: Grossly normal Last 24 Hour Vital Signs Date Time Temp Pulse Resp B/P (MAP) Pulse Ox O2 Delivery O2 Flow Rate FiO2 02/18/19 12:00 98.4 65 20 124/63 (83) 94 02/18/19 09:00 Room Air 02/18/19 08:28 111/62 02/18/19 08:00 98.3 66 20 111/62 (78) 94 02/18/19 04:00 98.3 76 18 134/79 (97) 93 02/18/19 00:00 97.8 81 18 115/68 (84) 95 02/17/19 21:00 Room Air 02/17/19 20:00 98.2 78 18 110/71 (84) 94 Intake and Output 02/17/19 02/18/19 19:00 07:00 Intake Total 590.0 ml 201.0 ml Output Total 900 ml Balance -310.0 ml 201.0 ml Intake Oral 480 ml IV Total 110.0 ml 201.0 ml Output Urine Total 900 ml # Voids 3 3 # Bowel Movements 2 1 Laboratory Tests Test 02/18/19 04:50 White Blood Count 8.4 K/UL (4.8-10.8) Red Blood Count 5.06 M/UL (4.70-6.10) Hemoglobin 13.7 G/DL (14.2-18.0) L Hematocrit 41.6 % (42.0-52.0) L Mean Corpuscular Volume 82 FL (80-99) Mean Corpuscular Hemoglobin 27.2 PG (27.0-31.0) Mean Corpuscular Hemoglobin Concent 33.0 G/DL (32.0-36.0) Red Cell Distribution Width 14.4 % (11.6-14.8) Platelet Count 224 K/UL (150-450) Mean Platelet Volume 7.0 FL (6.5-10.1) Neutrophils (%) (Auto) 58.2 % (45.0-75.0) Lymphocytes (%) (Auto) 27.2 % (20.0-45.0) Monocytes (%) (Auto) 9.3 % (1.0-10.0) Eosinophils (%) (Auto) 4.2 % (0.0-3.0) H Basophils (%) (Auto) 1.1 % (0.0-2.0) Erythrocyte Sedimentation Rate 75 MM/HR (0-20) H Sodium Level 141 MMOL/L (136-145) Potassium Level 4.4 MMOL/L (3.5-5.1) Chloride Level 107 MMOL/L (98-107) Carbon Dioxide Level 25 MMOL/L (21-32) Anion Gap 9 mmol/L (5-15) Blood Urea Nitrogen 14 mg/dL (7-18) Creatinine 1.1 MG/DL (0.55-1.30) Estimat Glomerular Filtration Rate mL/min (>60) Glucose Level 98 MG/DL (74-106) Calcium Level 9.1 MG/DL (8.5-10.1) Vancomycin Level Trough 7.9 ug/mL (5.0-12.0) Height (Feet): 5 Height (Inches): 9.00 Weight (Pounds): 164 Medications Current Medications Medications (Trade) Dose Ordered Sig/Heber Route PRN Reason Start Time Stop Time Status Last Admin Dose Admin Acetaminophen (Tylenol) 325 mg Q4H PRN ORAL Mild Pain/Temp > 100.5 02/16/19 20:45 03/18/19 20:44 Cyanocobalamin (Vitamin B-12) 500 mcg DAILY ORAL 02/17/19 09:00 03/19/19 08:59 02/18/19 08:39 Divalproex Sodium (Depakote Sprinkles) 125 mg BEDTIME ORAL 02/16/19 21:00 03/18/19 20:59 02/17/19 21:01 Docusate Sodium (Colace) 100 mg DAILY ORAL 02/17/19 09:00 03/19/19 08:59 02/18/19 08:28 Doxazosin Mesylate (Cardura) 2 mg BEDTIME ORAL 02/16/19 21:00 03/18/19 20:59 02/17/19 21:00 Escitalopram Oxalate (Lexapro) 10 mg DAILY ORAL 02/17/19 09:00 03/19/19 08:59 02/18/19 08:28 Lisinopril (Zestril) 5 mg DAILY ORAL 02/16/19 20:45 03/18/19 20:44 02/18/19 08:28 Lorazepam (Ativan) 2 mg Q6H PRN ORAL Agitation 02/16/19 20:45 02/23/19 20:44 Multivitamins (Multivitamins) 1 tab DAILY ORAL 02/17/19 09:00 03/19/19 08:59 02/18/19 08:28 Piperacillin Sod/ Tazobactam Sod 3.375 gm/Sodium Chloride 110 ml @ 27.5 mls/hr Q8H IVPB 02/17/19 01:00 02/24/19 00:59 02/18/19 08:38 Pravastatin Sodium (Pravachol) 10 mg BEDTIME ORAL 02/17/19 21:00 03/19/19 20:59 02/17/19 21:01 Vancomycin HCl (Vanco rx to dose) 1 ea DAILY PRN MISC Per rx protocol 02/16/19 20:45 03/18/19 20:44 Vancomycin HCl 1 gm/Dextrose 275 ml @ 183.708 mls/hr Q8H IVPB 02/18/19 06:30 02/23/19 06:29 02/18/19 14:33 Assessment/Plan Status: progressing Assessment/Plan: Continue present antibiotics Unable to suction the left ear-equipment does not exist in this hospital. Once discharged, can be seen by PMD-ENT. [facility] Hospital declaration INPATIENT level of care is warranted for this patient because patient is a78 year old with malignant otitis externa and dementia. Patient is at high risk for recurrence without proper follow up as an outpt. . Plan of care/treatment include visit to local ENT to monitor and clear ear canal as indicated on a weekly basis x at least 4 weeks post discharge.. Disposition: Once the patient is stable to leave the hospital, I anticipate the patient will likely be discharged to the following environment:longterm with ability for transportation to ENT office for weekly visit to check his ear. Estimated discharge date: TBD I spent 70 minutes on this patient's case, and 45 minutes was dedicated to counseling and/or care coordination. Discussed with nurse and admitting MD. MIPS ([employer]-based Incentive Payment System) Applicable CPT: 52496, 76347 CHECK ALL THAT ARE MET: Measure #374 (All): Send report to referring provider. MEDICAL COMPLEXITY High complexity medical decision making (need 2/3 categories) Problem - need 4 points Acute/new problem with new plan for workup (4 points, 1 max) Acute/new problem without additional workup (3 points, 1 max) Unstable chronic problem actively being managed (2 point each, 2 max) Stable chronic problem actively being managed (1 point each, 2 max) Self-limited/transient process (constipation, muscle ache, etc) (1 point each , 2 max) Data - need 4 points Reviewed labs/imaging studies (1 points, 2 max) Independent review of imaging (EKG, xrays, etc) (2 points, 2 max) Discussed case with consult/other MD/RN (2 points, 2 max) High Risk - qualify if have one of the following: Severe exacerbation of acute problem, acute mental status change, IV narcotics , monitoring drug levels (vancomycin, INR, tacrolimus etc) Gomez Elizondo MD February 18, 2019 17:12
--- NOTE | 2019-02-18 19:04 | NUR ---
HAND-OFF: Report given to
--- NOTE | 2019-02-18 19:33 | NUR ---
NURSE NOTES: Received patient awake, no SOB, resting in bed, comfortable.
[2019-02-18 20:00] VITALS: BP 128/64
[2019-02-18] MEDS: Doxazosin 1mg Tab ORAL SCH (21:09)
[2019-02-18] MEDS: Depakote 125mg Sprinkles ORAL SCH (21:10)
[2019-02-19] MEDS: Piperacillin/Tazobactam 3.375 GM in NS 110 ML IVPB SCH ×4 (00:02→19:49)
[2019-02-19 00:23] VITALS: BP 104/57
[2019-02-19 04:00] VITALS: BP 126/69
--- NOTE | 2019-02-19 07:34 | NUR ---
HAND-OFF: Report given to Len Garza RN.
--- NOTE | 2019-02-19 07:40 | NUR ---
NURSE NOTES: Received patient on bed. IV site intact and patent. Bed in low and locked position, call light in reach. Dressing dry and intact. No signs of respiratory distress. Room board updated, will continue to monitor.
[2019-02-19 08:00] VITALS: BP 115/72
[2019-02-19] MEDS: Vancomycin 750mg/NS 275ml IVPB SCH ×6 (08:33→23:56)
--- NOTE | 2019-02-19 09:33 | Diagnostic Imaging Report ---
Indication: Discharge from the left ear and severe pain. Technique: Continuous helical transaxial imaging of the temporal bones. No IV contrast was administered. High resolution coronal and axial 2-D reformats were also obtained. Study obtained in a Siemens sensation [address] Total Dose length Product (DLP): [address] Dose Index Volume (CTDIvol): 0.15, 43.85 mGy Comparison: Maxillofacial CT 02/16/2019 Findings: Left temporal bone: The mastoid bone is sclerotic. In addition, the air cells are extensively opacified. There is also suggestion of bony erosion given many of the air cells have coalesced together. Findings indicate an acute on chronic mastoiditis moderate to severe in degree. In addition, there is extensive opacification of the left middle ear. The ossicles are not readily identified indicating displacement and erosion. The tympanic membrane is also not identified and there is masslike opacification in the expected location of the tympanic membrane which is likely perforated. There is also suggestion of bony erosion given ill definition of the middle ear chamber. The scutum is not identified and likely eroded. The findings indicate an otitis media with perforation of the tympanic membrane and acquired cholesteatoma. The inner ear structures on the left appear normal including the cochlea, vestibule, semicircular canals. The eustachian tube is partially opacified. The IAC canal and jugular fossa, carotid canal appear unremarkable. Facial nerve canal is unremarkable. Right temporal bone: There is sclerosis of the right mastoid bone indicative of chronic mastoiditis. There is some opacification of the mastoid air cells not as severe as on the left side consistent with the acute on chronic mastoiditis. There is opacification of the external auditory canal up to the tympanic membrane which is bulging inward. The middle ear canal is patent. The ossicles appear normal. The inner ear structures appear unremarkable. IMPRESSION: Left otitis media, coalescent acute on chronic mastoiditis, opacification in the area of the tympanic membrane, ossicular erosion and displacement, bony erosions which likely include the scutum. Findings suggestive of a acquired cholesteatoma, which is not excluded. Please correlate clinically. Moderate acute on chronic right mastoiditis. The CT scanner at [facility] is accredited by the [employer] and the scans are performed using dose optimization techniques as appropriate to a performed exam including Automatic Exposure control.
[2019-02-19] MEDS: Lisinopril 2.5mg tab ORAL SCH (09:39)
[2019-02-19] MEDS: Docusate 100mg cap ORAL SCH (09:39)
[2019-02-19] MEDS: Vitamin B-12 500mcg tab ORAL SCH (09:39)
[2019-02-19 12:00] VITALS: BP 96/64
--- NOTE | 2019-02-19 15:25 | NUR ---
RD ASSESSMENT & RECOMMENDATIONS SEE CARE ACTIVITY FOR COMPLETE ASSESSMENT DAILY ESTIMATED NEEDS: Needs based on Cardiac, 67.5kg abw 25-30 kcals/kg 5210-7789 total kcals 1-1.3 g protein/kg 68-87 g total protein 25-30 mL/kg total fluid mLs NUTRITION DIAGNOSIS: Swallowing difficulty R/T dysphagia, h/o CVA as evidenced by pt on [facility] soft finely chopped texture diet, NTL. CURRENT DIET:[facility] MED, [facility] soft chopped NTL PO DIET RECOMMENDATIONS: LOW NA, texture per [facility] [employer] ADDITIONAL RECOMMENDATIONS: * Per SNF: ht=5'6", [id number] (02/13/19) * [facility] [employer]IP[facility] eval for appropriate texture * Monitor BGs closely, need for carb controlled diet * Continue MVI as supplement and for skin integrity
[2019-02-19 16:00] VITALS: BP 109/69
--- NOTE | 2019-02-19 16:55 | General Progress Note ---
Assessment/Plan Status: stable Assessment/Plan: 1. Otitis media and Externia - cont IV Antibiotic. ENT consult done and patient will f/u with ENT as outpatient. 2. Acute on chronic Mastoiditis - ENT consult with DR Gomez Elizondo done. Cont IV antibiotic for total of 6 wks. Picc line before discharge. 3. Possible sepsis - cont IV Abx as above. 4. Metabolic Encephalopathy - cont IV ABX 5. HTN - cont home meds. 6. CVA with hemiplegia - stable. 7. bipolar disorder - stable. 8. HLD - cont home med. Subjective Date patient seen: February 19, 2019 Time patient seen: 16:40 Constitutional: Reports: weakness HEENT: Reports: other - drainning discharge - improved Cardiovascular: Reports: no symptoms Respiratory: Reports: no symptoms Gastrointestinal/Abdominal: Reports: no symptoms Genitourinary: Reports: no symptoms Neurologic/Psychiatric: Reports: no symptoms Endocrine: Reports: no symptoms Hematologic/Lymphatic: Reports: no symptoms Allergies: Coded Allergies: No Known Allergies (Unverified , 12/12/18) Subjective Pt still has pus drainning from his LT ear but improving. afebrile. no sob or chest pain. Objective Last 24 Hour Vital Signs Date Time Temp Pulse Resp B/P (MAP) Pulse Ox O2 Delivery O2 Flow Rate FiO2 02/19/19 16:00 98.1 63 17 109/69 (82) 95 02/19/19 12:00 98.5 72 17 96/64 (75) 95 02/19/19 09:39 115/72 02/19/19 09:00 Room Air 02/19/19 08:00 97.8 73 18 115/72 (86) 95 02/19/19 04:00 98.2 70 18 126/69 (88) 96 02/19/19 00:23 98.4 68 18 104/57 (73) 93 02/18/19 21:00 Room Air 02/18/19 20:00 97.8 75 17 128/64 (85) 95 Intake and Output 02/18/19 02/19/19 19:00 07:00 Intake Total 892.500 ml 467.500 ml Balance 892.500 ml 467.500 ml Intake Oral 480 ml IV Total 412.500 ml 467.500 ml # Voids 4 3 # Bowel Movements 3 Laboratory Tests 02/19/19 05:45: Vancomycin Level Trough 19.9H Height (Feet): 5 Height (Inches): 9.00 Weight (Pounds): 164 General Appearance: no apparent distress, alert EENT: other - drainning pus from Lt ear Neck: non-tender, supple Cardiovascular: normal peripheral pulses, normal rate, regular rhythm Respiratory/Chest: chest wall non-tender, lungs clear, normal breath sounds Abdomen: normal bowel sounds, non tender, soft Extremities: normal range of motion, non-tender Edema: no edema noted Arm (L), no edema noted Arm (R), no edema noted Leg (L), no edema noted Leg (R), no edema noted Pedal (L), no edema noted Pedal (R), no edema noted Generalized Neurologic: alert, responsive Skin: warm/dry Lymphatic: normal anterior cervical (L), normal anterior cervical (R), normal posterior cervical (L), normal posterior cervical (R), normal submandibular (L) , normal submandibular (R), normal supraclavicular (L), normal supraclavicular ( R), normal axillary (L), normal axillary (R), normal inguinal (L), normal inguinal (R), normal other Mitesh Ward MD February 19, 2019 16:55
[2019-02-19] MEDS ORDERED: Tubing IV Secondary IV ONE (17:14)
--- NOTE | 2019-02-19 18:03 | NUR ---
NURSE NOTES: Patient off floor for MRI.
--- NOTE | 2019-02-19 18:07 | Infectious Diseases Prog Note ---
Assessment/Plan Problems: (1) Mastoiditis Assessment & Plan: acute on chronic, had ENT eval no surgical debridement , continue vancomycin and zosyn empirically for now pending cultures . will order MRI of the brain to rule out abscess (2) Otitis media Assessment & Plan: complicated with mastoiditis , had ENT eval, continue vancomycin and zosyn , pending culture of the ear draining . 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, continue zosyn to cover for possible pseudomonas aeruginosa infection, pending ear drainage culture , follow up with ENT (5) Acute metabolic encephalopathy Assessment & Plan: due to the above, continue wide spectrum antibiotics and hydration, MRI image of the brain to rule out intracranial process Subjective ROS Limited/Unobtainable: Yes Allergies: Coded Allergies: No Known Allergies (Unverified , 12/12/18) Subjective He was resting in bed comfortable, more awake and responsive, nonverbal, no fever or chills, copious discharge coming out of his left ear , serosanguineous Objective Vital Signs Last 24 Hour Vital Signs Date Time Temp Pulse Resp B/P (MAP) Pulse Ox O2 Delivery O2 Flow Rate FiO2 02/19/19 16:00 98.1 63 17 109/69 (82) 95 02/19/19 12:00 98.5 72 17 96/64 (75) 95 02/19/19 09:39 115/72 02/19/19 09:00 Room Air 02/19/19 08:00 97.8 73 18 115/72 (86) 95 02/19/19 04:00 98.2 70 18 126/69 (88) 96 02/19/19 00:23 98.4 68 18 104/57 (73) 93 02/18/19 21:00 Room Air 02/18/19 20:00 97.8 75 17 128/64 (85) 95 Height (Feet): 5 Height (Inches): 9.00 Weight (Pounds): 164 General Appearance: WD/WN, no acute distress HEENT: normocephalic, atraumatic, anicteric, mucous membranes moist, PERRL, EOMI, pharynx normal, supple, no JVD, other - left ear draining brownish fluids Respiratory/Chest: chest wall non-tender, lungs clear, normal breath sounds, no respiratory distress, no accessory muscle use Cardiovascular: normal peripheral pulses, normal rate, regular rhythm, no gallop/murmur, no JVD Abdomen: normal bowel sounds, soft, non tender, no organomegaly, non distended , no mass, no scars Genitourinary: normal external genitalia Extremities: no cyanosis, no clubbing Skin: no rash, no lesions Neurologic/Psychiatric: alert, responsive Lymphatic: no neck adenopathy, no groin adenopathy Musculoskeletal: normal muscle bulk, no effusion Laboratory Tests Test 02/19/19 05:45 Vancomycin Level Trough 19.9 ug/mL (5.0-12.0) H Current Medications Medications (Trade) Dose Ordered Sig/Heber Route PRN Reason Start Time Stop Time Status Last Admin Dose Admin Acetaminophen (Tylenol) 325 mg Q4H PRN ORAL Mild Pain/Temp > 100.5 02/16/19 20:45 03/18/19 20:44 Cyanocobalamin (Vitamin B-12) 500 mcg DAILY ORAL 02/17/19 09:00 03/19/19 08:59 02/19/19 09:39 Divalproex Sodium (Depakote Sprinkles) 125 mg BEDTIME ORAL 02/16/19 21:00 03/18/19 20:59 02/18/19 21:10 Docusate Sodium (Colace) 100 mg DAILY ORAL 02/17/19 09:00 03/19/19 08:59 02/19/19 09:39 Doxazosin Mesylate (Cardura) 2 mg BEDTIME ORAL 02/16/19 21:00 03/18/19 20:59 02/18/19 21:09 Escitalopram Oxalate (Lexapro) 10 mg DAILY ORAL 02/17/19 09:00 03/19/19 08:59 02/19/19 09:39 Lisinopril (Zestril) 5 mg DAILY ORAL 02/16/19 20:45 03/18/19 20:44 02/19/19 09:39 Lorazepam (Ativan) 2 mg Q6H PRN ORAL Agitation 02/16/19 20:45 02/23/19 20:44 Multivitamins (Multivitamins) 1 tab DAILY ORAL 02/17/19 09:00 03/19/19 08:59 02/19/19 09:39 Piperacillin Sod/ Tazobactam Sod 3.375 gm/Sodium Chloride 110 ml @ 27.5 mls/hr Q8H IVPB 02/17/19 01:00 02/24/19 00:59 02/19/19 10:15 Pravastatin Sodium (Pravachol) 10 mg BEDTIME ORAL 02/17/19 21:00 03/19/19 20:59 02/18/19 21:10 Vancomycin HCl (Vanco rx to dose) 1 ea DAILY PRN MISC Per rx protocol 02/16/19 20:45 03/18/19 20:44 Vancomycin HCl 750 mg/Sodium Chloride 275 ml @ 183.333 mls/hr Q8HR@0000,0800,1600 IVPB 02/19/19 08:00 02/24/19 07:59 02/19/19 16:19 Francisco Martinez M.D. February 19, 2019 18:07
--- NOTE | 2019-02-19 19:31 | NUR ---
HAND-OFF: Report given to ESTUARDO Kaplan.
--- NOTE | 2019-02-19 19:57 | NUR ---
NURSE NOTES: PATIENT IN BED, AWAKE, EATING DINNER. IV INFILTRATED, PUFFY, ON RIGHT FOREARM, REMOVED. NO S/S DISTRESS NOTED. NO COMPLAINTS OF PAIN AT THIS TIME. BED IN LOWEST POSITION, CALL LIGHT WITHIN REACH, BED ALARM ON. WILL CONTINUE TO MONITOR.
--- NOTE | 2019-02-19 20:00 | NUR ---
NURSE NOTES: Left message for Dr. Ward, awaiting response.
--- NOTE | 2019-02-19 20:15 | NUR ---
NURSE NOTES: PATIENT NEW IV ACCESS RIGHT HAND 22 GAUGE, PATENT.
[2019-02-19 20:43] VITALS: BP 113/71
[2019-02-19] MEDS: Doxazosin 1mg Tab ORAL SCH (21:09)
[2019-02-19] MEDS: Depakote 125mg Sprinkles ORAL SCH (21:10)
[2019-02-20] VITALS: BP 128/62
[2019-02-20] MEDS: Piperacillin/Tazobactam 3.375 GM in NS 110 ML IVPB SCH ×2 (02:05→09:38)
[2019-02-20 04:51] VITALS: BP 130/64
--- NOTE | 2019-02-20 05:00 | NUR ---
NURSE NOTES: CHANGED SACRAL DRESSING.
--- NOTE | 2019-02-20 07:26 | NUR ---
HAND-OFF: Report given to BAILEE CERVANTES RN.
--- NOTE | 2019-02-20 07:36 | NUR ---
NURSE NOTES: pt in bed with no sob nor in any form of distress noted. Breathing regular and unlabored. denies pain at this time. still noted with slight drainage on (L) ear. Bed in lowest position. Call light within reach at all time. will continue to monitor
[2019-02-20 08:00] VITALS: BP 131/72
[2019-02-20] MEDS: Vancomycin 750mg/NS 275ml IVPB SCH ×4 (08:06→17:45)
[2019-02-20] MEDS: Docusate 100mg cap ORAL SCH (08:06)
[2019-02-20] MEDS: Vitamin B-12 500mcg tab ORAL SCH (08:06)
[2019-02-20] MEDS: Lisinopril 2.5mg tab ORAL SCH (08:07)
[2019-02-20 12:00] VITALS: BP 135/70
--- NOTE | 2019-02-20 13:23 | Diagnostic Imaging Report ---
Indication: 78-year-old male with left ear discharge. Left ear pain. Headache. R/O osteomyelitis. Technique: The head was imaged in a 1.5 Luciana magnet. Sequences obtained include sagittal and axial T1 FLAIR, axial T2 fast spin echo with fat saturation, axial STIR, diffusion and ADC map. Comparison: None There is T2 hyperintense signal within the mastoid portions of both temporal bones consistent with mastoiditis, which is known and initially diagnosed on CT. Recent high-resolution CT temporal bone demonstrated erosion of many of the remy of the mastoid air cells resulting in coalescence, i.e. acute coalescent mastoiditis, which is synonymous with osteomyelitis. Furthermore, there is diffusion restriction involving the left mastoid bone, further supporting this diagnosis. There was no gadolinium given. However on the basis of the examination performed, there is no evidence of dural extension or adjacent edilson-mastoid fluid collections, epidural collection or abscess. There is no evidence of edema within the brain. Flow voids demonstrated within the visualized dural sinuses. The study is limited by motion. There is no diffusion restriction within the brain. There is severe atrophy characterized by prominence of the ventricles basal cisterns and cerebral sulci. There are areas of focal cortical encephalomalacia involving portions of the temporal and parietal lobes on the right and the to some extent in the right frontal lobe as well consistent with old infarct. There is extensive periventricular and deep white matter T2 hyperintense signal consistent with chronic small vessel disease. 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 Left otitis media better appreciated on temporal bone CT 02/18/2019. Fluid within the right mastoid air cells consistent with mastoiditis. Severe atrophy of the brain. 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
[2019-02-20] MEDS ORDERED: Lidocaine 1% Plain 30 ml INJ PRN (13:30)
[2019-02-20] MEDS ORDERED: Heparin1,000 units/500ml Premix(Conc:2 units/ml) IV PRN (13:30)
--- NOTE | 2019-02-20 13:33 | NUR ---
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 OTITIS EXTERNA VS: BP 135/70, P 70, T 97.9, RR 18, SpO2 94 BRAIN MRI:Fluid within the right mastoid air cells consistent with mastoiditis. Severe atrophy of the brain. IS;ZOSYN 110ml IVPB ZESTRIL 5mg LEXAPRO 10mG VANCOMYCIN 275 ml MED/SURG
[2019-02-20] MEDS ORDERED: Cefepime HCl 2 GM in D5W 55 ML IVPB SCH (14:00)
[2019-02-20] MEDS ORDERED: metroNIDAZOLE 500mg tab ORAL SCH (14:00)
--- NOTE | 2019-02-20 15:09 | General Progress Note ---
Assessment/Plan Status: stable Assessment/Plan: 1. Otitis media and Externia - cont IV Antibiotic for total of 6 wks per ID. Patient will f/u with ENT as outpatient. D/c to [facility] after Picc line. 2. Acute on chronic Mastoiditis - F/u with ENT as outpatient. Cont IV antibiotic for total of 6 wks. Picc line for today. 3. Questionable sepsis - Most likely contamination. 4. Metabolic Encephalopathy - improving. cont IV ABX 5. HTN - cont home meds. 6. CVA with hemiplegia - stable. 7. bipolar disorder - stable. 8. HLD - cont home med. Subjective Date patient seen: February 20, 2019 Time patient seen: 15:00 Constitutional: Reports: weakness HEENT: Reports: ear discharge Cardiovascular: Reports: no symptoms Respiratory: Reports: no symptoms Gastrointestinal/Abdominal: Reports: no symptoms Genitourinary: Reports: no symptoms Neurologic/Psychiatric: Reports: no symptoms Endocrine: Reports: no symptoms Hematologic/Lymphatic: Reports: no symptoms Allergies: Coded Allergies: No Known Allergies (Unverified , 12/12/18) Subjective Pt is doing well. He needs IV antibiotic for total of 6 wks per ID. will order Picc line for today and discharge back to [facility] rehab today. afebrile. no sob or chest pain. Objective Last 24 Hour Vital Signs Date Time Temp Pulse Resp B/P (MAP) Pulse Ox O2 Delivery O2 Flow Rate FiO2 02/20/19 12:00 97.9 70 18 135/70 (91) 96 02/20/19 08:57 Room Air 02/20/19 08:07 130/64 02/20/19 08:00 98.5 79 18 131/72 (91) 96 02/20/19 04:51 98.5 69 18 130/64 (86) 95 02/20/19 00:00 98.5 68 18 128/62 (84) 94 02/19/19 21:52 Room Air 02/19/19 20:43 98.0 71 18 113/71 (85) 94 02/19/19 16:00 98.1 63 17 109/69 (82) 95 Intake and Output 02/19/19 02/20/19 18:59 06:59 Intake Total 568.333 ml 440.00 ml Balance 568.333 ml 440.00 ml IV Total 568.333 ml 440.00 ml # Voids 2 # Bowel Movements 2 Height (Feet): 5 Height (Inches): 9.00 Weight (Pounds): 164 General Appearance: alert Neck: non-tender, supple Cardiovascular: normal rate, regular rhythm Respiratory/Chest: chest wall non-tender, lungs clear, normal breath sounds Abdomen: normal bowel sounds, non tender, soft Extremities: normal range of motion, non-tender Edema: no edema noted Arm (L), no edema noted Arm (R), no edema noted Leg (L), no edema noted Leg (R), no edema noted Pedal (L), no edema noted Pedal (R), no edema noted Generalized Neurologic: alert, responsive Skin: warm/dry Lymphatic: normal anterior cervical (L), normal anterior cervical (R), normal posterior cervical (L), normal posterior cervical (R), normal submandibular (L) , normal submandibular (R), normal supraclavicular (L), normal supraclavicular ( R), normal axillary (L), normal axillary (R), normal inguinal (L), normal inguinal (R), normal other Mitesh Ward MD February 20, 2019 15:08
[2019-02-20] MEDS ORDERED: FLAGYL500 MG ORAL (15:20)
[2019-02-20] MEDS ORDERED: CEFEPIME-D2 GM/50 ML IVPB (15:24)
--- NOTE | 2019-02-20 15:28 | General Progress Note ---
Assessment/Plan Status: stable Assessment/Plan: 1. Otitis media and Externia - cont IV Antibiotic for total of 6 wks per ID. Patient will f/u with ENT as outpatient. D/c to [facility] after Picc line. 2. Acute on chronic Mastoiditis - F/u with ENT as outpatient. Cont IV antibiotic for total of 6 wks. Picc line for today. 3. Questionable sepsis - Most likely contamination. 4. Metabolic Encephalopathy - improving. cont IV ABX 5. HTN - cont home meds. 6. CVA with hemiplegia - stable. 7. bipolar disorder - stable. 8. HLD - cont home med. Addendum notes: Patient doesn't have any family member and he can't sign for himself due to dementia and it is emergent to have picc line placed for IV antibiotic for His osteo treatment for total of 6 wks. Subjective Date patient seen: February 20, 2019 Time patient seen: 15:25 Allergies: Coded Allergies: No Known Allergies (Unverified , 12/12/18) Subjective Addendum notes: Patient doesn't have any family member and he can't sign for himself and it is emergent to have picc line placed for IV antibiotic for His osteo treatment for total of 6 wks. Objective Last 24 Hour Vital Signs Date Time Temp Pulse Resp B/P (MAP) Pulse Ox O2 Delivery O2 Flow Rate FiO2 02/20/19 12:00 97.9 70 18 135/70 (91) 96 02/20/19 08:57 Room Air 02/20/19 08:07 130/64 02/20/19 08:00 98.5 79 18 131/72 (91) 96 02/20/19 04:51 98.5 69 18 130/64 (86) 95 02/20/19 00:00 98.5 68 18 128/62 (84) 94 02/19/19 21:52 Room Air 02/19/19 20:43 98.0 71 18 113/71 (85) 94 02/19/19 16:00 98.1 63 17 109/69 (82) 95 Intake and Output 02/19/19 02/20/19 18:59 06:59 Intake Total 568.333 ml 440.00 ml Balance 568.333 ml 440.00 ml IV Total 568.333 ml 440.00 ml # Voids 2 # Bowel Movements 2 Height (Feet): 5 Height (Inches): 9.00 Weight (Pounds): 164 Mitesh Ward MD February 20, 2019 15:28
[2019-02-20] MEDS ORDERED: VANCOMYCIN1 GM IV (15:36)
[2019-02-20 16:00] VITALS: BP 137/59
--- NOTE | 2019-02-20 16:20 | Diagnostic Imaging Report ---
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 The right upper extremity was prepped with alcohol. All elements of maximal sterile barrier technique were followed including usage of a cap, mask, sterile gown, sterile gloves, hand hygiene and a large sterile sheet. Sonographic evaluation of the upper extremity was performed demonstrating a patent and compressible basilic vein. Access was obtained under real-time ultrasound guidance (with utilization of sterile gel and sterile probe cover) and digital image was saved and archived. An .018 wire was introduced. Needle exchanged for a 5 [place] peel-away sheath. Measurements were obtained. A 5 [place] dual-lumen Power PICC line catheter was cut to 40 cm and introduced over the wire. Peel-away sheath and wire were removed.Catheter was secured to the skin using 2-0 Prolene suture. Both ports aspirate and flush easily. A single fluoroscopic image shows the distal tip in the superior vena cava. Fluoroscopic time 20 seconds. Impression: Successful placement of an upper extremity PICC line catheter
--- NOTE | 2019-02-20 16:59 | NUR ---
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
--- NOTE | 2019-02-20 19:07 | NUR ---
HAND-OFF: Report given to ESTUARDO Callahan. All discharge report given to the nurse (Cathleen) from [facility] and verbalized understanding
[2019-02-20] MEDS ORDERED: Dyna-Hex 2% Top Sol 2oz TOPIC SCH (20:00)
--- NOTE | 2019-02-20 20:16 | Infectious Diseases Prog Note ---
Assessment/Plan Problems: (1) Mastoiditis Assessment & Plan: acute on chronic, had ENT eval no surgical debridement , continue vancomycin and switch zosyn empirically to cefepime and metronidazole and treat him for 6 weeks with close follow up with ENT as an outpatient . MRI of the brain no abscess, confirmed mastoiditis (2) Otitis media Assessment & Plan: complicated with mastoiditis , had ENT eval, continue vancomycin, cefepime and metronidazole for 6 weeks course of treatment with follow up with ENT, AND repeated images in 4 weeks 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, continue cefepime to cover for possible pseudomonas aeruginosa infection, follow up with ENT (5) Acute metabolic encephalopathy Assessment & Plan: due to the above, continue wide spectrum antibiotics and hydration, MRI image of the brain ruled out intracranial process Assessment/Plan time of stamp doesn't correlate with time patient was seen D/W Primary and nurse Subjective ROS Limited/Unobtainable: Yes Allergies: Coded Allergies: No Known Allergies (Unverified , 12/12/18) Subjective He was resting in bed comfortable, more awake and responsive, nonverbal, no fever or chills, has very minimal brownish discharge coming out of his left ear more thick Objective Vital Signs Last 24 Hour Vital Signs Date Time Temp Pulse Resp B/P (MAP) Pulse Ox O2 Delivery O2 Flow Rate FiO2 02/20/19 16:00 98.1 58 18 137/59 (85) 98 02/20/19 12:00 97.9 70 18 135/70 (91) 96 02/20/19 08:57 Room Air 02/20/19 08:07 130/64 02/20/19 08:00 98.5 79 18 131/72 (91) 96 02/20/19 04:51 98.5 69 18 130/64 (86) 95 02/20/19 00:00 98.5 68 18 128/62 (84) 94 02/19/19 21:52 Room Air 02/19/19 20:43 98.0 71 18 113/71 (85) 94 Height (Feet): 5 Height (Inches): 9.00 Weight (Pounds): 164 General Appearance: WD/WN, no acute distress HEENT: normocephalic, atraumatic, anicteric, mucous membranes moist, PERRL, EOMI, pharynx normal, supple, no JVD, other - left ear thick draining brownish Respiratory/Chest: chest wall non-tender, lungs clear, normal breath sounds, no respiratory distress, no accessory muscle use, decreased breath sounds Cardiovascular: normal peripheral pulses, normal rate, regular rhythm, no gallop/murmur, no JVD Abdomen: normal bowel sounds, soft, non tender, no organomegaly, non distended , no mass, no scars Genitourinary: normal external genitalia Extremities: no cyanosis, no clubbing Skin: no rash, no lesions, ulcers Neurologic/Psychiatric: alert, responsive Lymphatic: no neck adenopathy, no groin adenopathy Musculoskeletal: normal muscle bulk, no effusion Laboratory Tests Test 02/20/19 16:10 Vancomycin Level Trough 17.4 ug/mL (5.0-12.0) H Francisco Martinez M.D. February 20, 2019 20:16
--- NOTE | 2019-02-21 04:45 | Discharge Summary ---
DATE OF ADMISSION: 02/16/2019 HOSPITAL COURSE: This is an 78-year-old male who was brought in for complaint of copious amount of his secretion from his left ear. The patient is a long-term resident at the [facility]. The patient had pus draining from his left ear for a couple of days before the admission. He did not have any fever, chills, or sign of sepsis. Workup in the hospital showed the patient has osteomyelitis and mastitis of the left side. The patient was seen by ID and ENT, and no surgical intervention was recommended by the ENT. The patient will be continuing IV antibiotic, cefepime 2 g q.8 h., vanco IV and Flagyl 500 mg q.8 h. for a total of 6 weeks. The patient also had a PICC line placed in the hospital for the long-term IV antibiotic at the [facility]. The patient will be restarted on his home medication along with IV antibiotic for osteomyelitis and he will need to follow up with ENT as well as outpatient. FINAL DIAGNOSES: 1. Otitis media externa. 2. Acute on chronic mastoiditis. 3. Osteomyelitis. 4. Metabolic encephalopathy. 5. Hypertension. 6. History of CVA with hemiplegia. 7. Bipolar disorder. 8. Hyperlipidemia. DISCHARGE MEDICATIONS: 1. Cefepime 2 g q.8 h. for 40 days. 2. Flagyl 500 mg q.8 h. for 40 days. 3. Vanco, pharmacy to dose for 40 days. 4. Acetaminophen 325 mg q.4 h. p.r.n. 5. Eliquis 2.5 mg b.i.d. 6. Vitamin B12 500 mg daily. 7. Depakote 250 mg at bedtime. 8. Docusate sodium 100 mg daily. 9. Cardura 2 mg at bedtime. 10. Lexapro 10 mg daily. 11. Lisinopril 5 mg daily. 12. Lorazepam 2 mg q.6 h. as needed. 13. Multivitamin 1 p.o. daily. 14. Simvastatin 10 mg at bedtime. 15. Vitamin D 1000 units t.i.d. DISPOSITION: [facility] patient [facility] be [facility]. I will follow the patient in the rehab. The patient also needs to be followed up with ENT Dr. Lester as outpatient in one week. Mitesh Ward M.D. DR: Valerie JOB#: [id number] CC:
== END 2019-02-20 19:03 | DRG 539 ==
LOC: EDBD 15:31 → EMR 16:10 → 4E 16:18 → EDBEDREQ 17:27 → 4E 20:50
PROC: 02HV33Z Insertion of Infusion Device into Superior Vena Cava, Percutaneous Approach (ICD-10-PCS; principal; 2019-02-20)
DX: M86.8X8 Other osteomyelitis, other site (principal); G93.41 Metabolic encephalopathy; H70.002 Acute mastoiditis without complications, left ear; I69.359 Hemiplegia and hemiparesis following cerebral infarction affecting unspecified side; H66.42 Suppurative otitis media, unspecified, left ear; H60.92 Unspecified otitis externa, left ear; F03.90 Unspecified dementia, unspecified severity, without behavioral disturbance, psychotic disturbance, mood disturbance, and anxiety; I69.320 Aphasia following cerebral infarction; I10 Essential (primary) hypertension; F31.9 Bipolar disorder, unspecified; E78.5 Hyperlipidemia, unspecified; I25.10 Atherosclerotic heart disease of native coronary artery without angina pectoris
CPT/HCPCS: 36415; 36569; 70480; 70487; 70551; 76937; 80048; 80053; 80202; 82962; 83036; 83690; 85025; 85610; 85651; 85730; 87040; 87070; 87081; 87181; 93970; 94640; 94664; 96365; 96368; 99285